=== PATIENT | female | born 1950 | race Caucasian/White ===

== ENCOUNTER 2018-01-14 07:37 | Day surgery (SDC) | payer MEDICARE, BC, OTHER ==
[~2018-01-14 07:37] MED LIST: Buffered Lidocaine 0.9% SYRIN* 5 ML/SYR SYRINGE INTRADERM ONE
[2018-01-14] MEDS ORDERED: fentaNYL* 50 MCG/ML 2 ML VIAL (100 MCG VIAL) ONE (09:05)
[2018-01-14] MEDS ORDERED: Midazolam* 1 MG/ML 2 ML VIAL (2 MG) ONE ×3 (09:10→09:43)
[2018-01-14] MEDS ORDERED: Lidocain 1% EPI 1:100,000 * 30 ML MDV ONE (09:14)
[2018-01-14] MEDS ORDERED: BSS OPTH.SOL* BTL ONE (09:14)
[2018-01-14] MEDS ORDERED: Phenylephrine 2.5% OPTH.SOL* 2 ML BTL ONE (09:14)
[2018-01-14] MEDS ORDERED: Neomycin/Polymy/Dex OPHTH.OIN* 3.5 GM ONE (09:15)
[2018-01-14] MEDS ORDERED: Tetracaine 0.5% OPTH.SOL 4 ML* 1 DROP BTL ONE (09:15)
[2018-01-14] MEDS ORDERED: Bacitracin OPHTH.OINT* 3.5 GM ONE (09:16)
[2018-01-14] MEDS ORDERED: Naloxone* 0.4 MG/ML 1 ML VIAL IV PRN (10:25)
[2018-01-14 10:28] VITALS: BP 138/74
--- NOTE | 2018-01-15 06:51 | OP ---
DATE OF OPERATION: 01/14/18 [facility] DATE OF : 54. SURGEON: Dr. Nacho Davis. INFORMATION OPERATOR: None. ANESTHESIA: Local MAC. PRE-OP DIAGNOSES: Bilateral upper lid blepharochalasia and dermatochalasia. POST-OP DIAGNOSES: Bilateral upper lid blepharochalasia and dermatochalasia. OPERATIVE PROCEDURE: Bilateral upper lid blepharoplasty. COMPLICATIONS: None. BLOOD LOSS: Minimal. DESCRIPTION OF PROCEDURE: The patient was seen preoperatively in the holding area where careful attention was made to create incisional fenton using a marking pen on the upper eye lid. The patient was subsequently brought to the operating room and given a small amount of intravenous sedation. During this time, she received approximately 1 to 1.5 cc of 1% lidocaine with epinephrine subcutaneously into each upper eyelid. The patient was then prepped and draped in the usual sterile fashion for ophthalmic surgery. Attention was directed to the right upper eyelid. A cutting bipolar was used to incise along the previously made fenton. The muscle skin flap was elevated and gentle cauterization was performed to achieve complete hemostasis. There was minimal fat protrusion, so the septum was purposely not violated. The skin was then closed with interrupted 6-0 gut suture. Attention directed to the contralateral eye where the same procedure was performed. At the end of the case , the eyelids appeared to open and close well. There was good symmetry. There was no active bleeding. A small amount of bacitracin ointment was placed above each eyelid on the wound. The patient was and sent to recovery room in stable condition with postop instructions and followup appointment given. [id number]/[facility] #: [id number] [place]
== END 2018-01-14 11:40 | disposition home or self-care (01) ==
LOC: OREAST 07:37
PROVIDERS: ATTEND Ophthalmology
DX: H02.831 Dermatochalasis of right upper eyelid (principal); H02.834 Dermatochalasis of left upper eyelid; H02.34 Blepharochalasis left upper eyelid; H02.31 Blepharochalasis right upper eyelid; H02.403 Unspecified ptosis of bilateral eyelids; F41.9 Anxiety disorder, unspecified; G47.9 Sleep disorder, unspecified; Z87.891 Personal history of nicotine dependence; Z79.01 Long term (current) use of anticoagulants; Z88.0 Allergy status to penicillin; Z88.1 Allergy status to other antibiotic agents
CPT/HCPCS: 88300; A9270-GY; J2250; J3010

== ENCOUNTER 2018-05-16 15:50 | Emergency (ER) | payer MEDICARE, OTHER, BC ==
--- OUTSIDE RECORDS SUMMARY | 2018-05-16 15:56 | XMS REPORT ---
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 Alexis Barr MD Primary Care Physician Unavailable Payers Type Date Identification Numbers Payment Provider Subscriber Commercial Expires: Policy Number: Crissy Horton 2014 [id number] PayID: [id number] [address] [address] [place] [address] Medigap Part B Effective: 2017 Policy Number: Medicare Negrito Borjas [id number] Radha PayID: [id number] [address] [place] [address] Medigap Part B Policy Number: [id number] [facility] Fabio Clifford PayID: [id number] [address] [place] [address] Problems Date Description Provider Status Onset: 06/23/2010 Anxiety state Alexis Barr M.D.,FACP Active Onset: 12/17/2012 Microscopic hematuria Alexis Barr M.D.,FACP Active Onset: 05/04/2016 Pulmonary emphysema Alexis Barr M.D.,FACP Active Note: on CT Onset: 02/22/2017 Ex-smoker Alexis Barr M.D.,FACP Active Onset: 06/05/2017 Osteopenia Alexis Barr M.D.,FACP Active Onset: 05/08/2018 Sleep apnea Alexis Barr M.D.,FACP Active Note: suspect Onset: 08/15/2012 Depressive disorder Alexis Barr M.D.,FACP Inactive Inactive: 02/17/2015 Onset: 11/13/2012 Ex-smoker Alexis Barr M.D.,FACP Inactive Inactive: 04/23/2016 Onset: 04/23/2016 Heavy cigarette smoker Alexis Barr M.D.,FACP Inactive Inactive: 02/22/2017 Onset: 06/23/2010 Tobacco user Alexis Barr M.D.,FACP Resolved Resolved: 11/13/2012 Family History Date Family Member(s) Problem(s) Comments General Non Hodgkin's Lymphoma General Non Hodgkin's Lymphoma father General Alzheimer's Disease mother Father due to [place] lymphoma () Mother Arthritis, Osteo Mother due to Alzheimer's Disease () Mother Spinal Stenosis Mother dementia First Son Tourettes sydrome First Son Mental Illness NOS First Son Drug Addiction Second Son tourette's syndrome Siblings 1 First Brother Depression Social History Type Date Description Comments Marital Status Occupation Retired from [employer] Cigarette Use 66 Years Former Cigarette Smoker ETOH Use 11/07/2017 Consumes 2 glasses of wine per day Recreational Drug Use Denies Drug Use Smoking Patient is a former smoker Smoking Patient is a former smoker Quit date: 05/10/16 Currently Active Patient is currently sexually active General Hx Text 1 child, 2 stepchildren Allergies, Adverse Reactions, Alerts Date Description Reaction Status Severity Comments 03/08/2011 Amoxicillin active nausea 05/09/2016 Doxycycline active pt states it builds up in her system and makes her sick 02/22/2017 Vagifem active itching 12/23/2008 NKDA inactive Medications Medication Date Status Form Strength Qnty SIG Indications Ordering Provider Mandibular 05/15 Active Device fabricate oral G47.33 Jessica Advancement /2017 appliance Aguiar, Device /mandibular DNP, RN, advancement MULTILITH OPERATOR- device for sleep apnea with needed adjustments. Hydrocodone 05/08 Active Tablets 5-325mg 20tab 1 by mouth 2 Alexis Bitartrate/Romario s times a day as Jacques Barr taminophen needed Jeremy,FACP Clotrimazole 11/20 Active Cream 1% 30gm topical qd prn Alexis /Arianna Barr M.D.,[facility] Clobetasol 11/07 Active Cream 0.05% 30g topical qd prn 691.8 Reina Propionate to Zambrano, erythematous GANG RIDER areas Bupropion HCL 03/08 Active Tablets 150mg 180ta take one F17.200 Reina ER (SR) /2013 ER 12HR bs tablet by [place], mouth every GANG RIDER morning and 2nd at noon (bid) Lexapro 01/16 Active Tablets 10mg 90tab take 1 tablet F32.9 Reina /2012 s by mouth every Zambrano, day GANG RIDER Klonopin Active Tablets 0.5mg 30tab 1 tablet by Alexis / s mouth every Jacques Barr, liberty as needed Jeremy,[facility] teva brand [place] 3 Active 2000 mg 1x Unknown /0000 daily Trazodone HCL Active Tablets 100mg take 09/12 Unknown tablet by mouth at bedtime Acetaminophen- 01/14 Hx Tablets 300-30mg 30tab 1-2 tab by Alexis Codeine #3 s mouth 3x a day Jacques Barr, - as needed Jeremy,[facility] 03/19 Betamethasone 11/20 Hx Cream 0.05% 45gm topical qd B35.6 Alexis Dipropionate /2017 prn, mixed Jacques Barr, - 50/50 w/ Jeremy,[facility] 03/19 clotrimazole Guaifenesin-Co 11/07 Hx Solution 100-10mg/ 180ml 5-10 R05 Reina deine 5ML milliliters [place], - q4-6hrs as GANG RIDER 03/19 needed for cough Premarin 02/22 Hx Cream 0.625mg/G 30gm insert 1 Alexis M applicatorful Jacques Barr, - by way of Jeremy,[facility] 04/24 vagina times a week for 2 weeks, then 1 to 2 times a week Nicorette 04/27 Hx Gum 4mg 100un 1 chewed every its 2 hours as Jacques Barr, - needed Jeremy,[facility] 02/22 Chantix 04/23 Hx Tablets 1mg 180ta take one . bs tablet by Jacques Barr, - mouth twice a M.D.,FACP Chantix 04/23 Hx Tablets 0.5mg X 55tab as directed F17.218 Alexis Starting 11 & 1 mg s Clayton Amezquita - X 42 M.D.,FACP 04/27 Clotrimazole/B 03/08 Hx Cream 1-0.05% 15gm apply B35.6 Reina etamethasone sparingly Zambrano, Dipropionate - twice a day GANG RIDER 11/20 Aspir-81 03/03 Hx Tablets 81mg [address] every day Ordering - Provider 02/17 Bupropion HCL 03/02 Hx Tablets 100mg 60tab 1/2 tab at 305.1 s noon PO for 2 D. Leann, - wks then 1 tab M.D.,FACP 03/08 po at Omeprazole 11/23 Hx Capsules 20mg 90cap No Longer 787.99 s Taking Jacques Barr, - [facility] 04/23 Clobetasol 09/24 Hx Cream 0.05% 30g topical qd prn 691.8 Alexis Propionate to Jacques Barr, - erythematous M.DAyad,FACP 11/23 Triamcinolone 08/20 Hx Ointment 0.1% 30g qd prn 691.8 Alexis Acetonide Jacques Barr, - MAyadD.,FACP 09/24 Bupropion HCL 08/20 Hx Tablets 100mg 60tab 1/2 tab at 305.1 s noon PO for 2 D. Leann, - wks then 1 tab M.D.,FACP 11/23 po at Trazodone HCL 04/06 Hx Tablets 100mg 90tab take one-half Alexis s to one to one Jacques Barr, - tablet by Jeremy,FACP 03/19 mouth at bedtime as needed Escitalopram 12/17 Hx Solution 5mg/5ML 30d 10 ml qd, 311 Cristy Oxalate decrease as Nitesh, - advised N.P. 08/20 Bupropion HCL 12/17 Hx Tablets 150mg 90tab Take One 305.1 Alexis ER 12HR s Tablet By Jacques Barr, - Mouth Every M.D.,FACP 03/08 Lisinopril 10/30 Hx Tablets 10mg 30tab 1 po qd 585.3 Cristy /2012 s Nitesh, - N.P. 11/13 Bupropion HCL 10/30 Hx Tablets 100mg 30tab 1 po qd 305.1 Cristy /2012 s Nitesh, - N.P. 12/17 Bupropion HCL 10/16 Hx Tablets 300mg 30tab 1 tab po qam 311 Cristy XL ER 24HR s Nitesh, - N.P. 10/30 305.1 Lexapro 10/16/2012 - Hx Tablets 10mg 90tabs 1 po qd 311 Cristy 12/17/2012 Nitesh, N.P. Wellbutrin SR 08/15/2012 - Hx Tablets ER 100mg 60tabs 1 [facility] Jacques Barr M.D.,[facility] Bactrim DS 04/18/2012 - Hx Tablets 800-160 10tabs 1 po bid Alexis 08/15/2012 mg for 5 days Jacques [facility] M.D.,[facility] Trazodone HCL 03/20/2012 - Hx Tablets 100mg 30tabs 1/2-1 po Alexis 08/15/2012 qhs prn Jacques Barr M.D.,FACP Lexapro 01/09/2012 - Hx Tablets 10mg 135tabs 1.5 tabs po Alexis 10/16/2012 qd Jacques [facility] M.D.,[facility] Alprazolam 10/12/2011 - Hx Tablets 0.5mg 30tabs 1 po qhs 780.5 Carlos Morse 08/15/2012 prn 2 Jacques [facility] M.D.,[facility] Patanol 10/12/2011 - Hx Solution 0.1% 1Bottle 1 gtts ou 372.1 Alexis 10/16/2012 bid prn 4 Jacques [facility] M.D.,[facility] Pennsaid 10/12/2011 - Hx Solution 1.5% 15ml 5-10 ggts l 726.3 Alexis 08/15/2012 elbow bid 2 Jacques Barr, milvia Luna,ALONSO Ondansetron Odt 03/20/2011 - Hx Tablets 4mg 20tabs po tid prn Carlos Morse 03/22/2011 Dispers Jacques Barr M.D.,[facility]ASP Metronidazole 03/20/2011 - Hx Tablets 250mg 30tabs tid for 10 Carlo Lito 04/05/2011 days Jacques Barr M.D.,YAS Bactrim DS 03/08/2011 - Hx Tablets 800-160 10tabs 1 po bid Alexis 03/14/2011 mg for 5 days Jacques Barr M.D.,YAS Amoxicillin 03/06/2011 - Hx Capsules 500mg 15caps 1 po tid [place] 03/08/2011 Jeremy Tinajero Ciprofloxacin 01/26/2011 - Hx Tablets 250mg 10tabs 1 bid x 5 Alexis HCL 02/02/2011 days Jacques Barr M.D.,YAS Chantix 06/23/2010 - Hx Tablets 0.5mg X 1mon starter 305.1 Alexis 03/06/2011 11 & 1 pack as Jacques Barr, mg X directed Jeremy,[facility] Lexapro - Hx Tablets 20mg 90tabs 1 tablet po Alexis 10/12/2011 qd Jacques Barr M.D.,YAS Restasis - Hx Emulsion 0.05% 1Mon one gtts ou Unknown 03/22/2011 bid Vitamin D - Hx Capsules 1000Uni 1 po qd Unknown 08/20/2013 t Lexapro - Hx Tablets 10mg 30tabs 1 po qd Unknown 01/09/2012 Vagifem - Hx Tablets 10mcg 24tabs pv twice a Unknown 02/22/2017 week (with applicator) Calcium Citrate - Hx Tablets 2 po qd Unknown + D 08/20/2013 Magnesium - Hx Capsules 200mg 1-2 po qd Unknown 02/17/2015 B Complex - Hx Capsules 30caps 2 po qd Unknown 08/20/2013 [place] 3 - Hx Capsules 90caps 2 po qd Unknown 08/20/2013 Probiotic - Hx Capsules 14caps 1 po qd Unknown 02/17/2015 Trazodone HCL - Hx .25mg As needed Unknown 05/08/2018 for sleep Immunizations CPT Code Status Date Vaccine Lot # 32617 Given 09/09/2009 Tetanus And Diptheria (Td) For Adult Use Preservative Free 20672 Refused 08/20/2013 Flu Vaccine Split Virus Preservative Free For Indiv 3Yr Older 74494 Refused 08/15/2012 Zoster (Zostavax) 93599 Refused 08/15/2012 Pneumonia Vaccine 30061 Refused 10/12/2011 Influenza Virus 3Yrs & Over 81630 Refused 06/23/2010 Pneumonia Vaccine 52215 Refused 06/23/2010 Influenza Virus 3Yrs & Over Vital Signs Date Vital Result Comment 05/15/2018 Height 64.24 inches 5'4.24" Weight 130.25 lb Heart Rate 80 /min BP Systolic Sitting 136 mmHg Rue reg cuff BP Diastolic Sitting 92 mmHg Rue reg cuff Respiratory Rate 16 /min O2 % BldC Oximetry 98 % On Ra BMI (Body Mass Index) 22.2 kg/m2 05/08/2018 Height 64.24 inches 5'4.24" Weight 131.00 lb Heart Rate 96 /min BP Systolic Sitting 120 mmHg BP Diastolic Sitting 78 mmHg Body Temperature 97.7 F O2 % BldC Oximetry 98 % BMI (Body Mass Index) 22.3 kg/m2 04/27/2018 Height 65 inches 5'5" Weight 131.00 lb with shoe Heart Rate 70 /min BP Systolic Sitting 140 mmHg Rue regular cuff BP Diastolic Sitting 82 mmHg Rue regular cuff Respiratory Rate 12 /min O2 % BldC Oximetry 98 % BMI (Body Mass Index) 21.8 kg/m2 Neck Circumference in inches 12.50 03/19/2018 Height 65 inches 5'5" Weight 129.00 lb Heart Rate 78 /min BP Systolic Sitting 160 mmHg BP Diastolic Sitting 82 mmHg Body Temperature 98.3 F O2 % BldC Oximetry 99 % BMI (Body Mass Index) 21.5 kg/m2 01/03/2018 Height 65 inches 5'5" Weight 129.38 lb Heart Rate 79 /min BP Systolic Sitting 118 mmHg BP Diastolic Sitting 78 mmHg Body Temperature 97.6 F O2 % BldC Oximetry 98 % BMI (Body Mass Index) 21.5 kg/m2 11/13/2017 Weight 130.00 lb Heart Rate 73 /min BP Systolic 118 mmHg BP Diastolic 65 mmHg Body Temperature 98.1 F O2 % BldC Oximetry 99 % 11/07/2017 Weight 130.00 lb Heart Rate 75 /min BP Systolic 130 mmHg BP Diastolic 79 mmHg Body Temperature 98.2 F O2 % BldC Oximetry 98 % 04/24/2017 Height 65 inches 5'5" Weight 130.50 lb Heart Rate 67 /min BP Systolic Sitting 122 mmHg BP Diastolic Sitting 68 mmHg Body Temperature 97.6 F O2 % BldC Oximetry 98 % BMI (Body Mass Index) 21.7 kg/m2 02/22/2017 Weight 130.00 lb Heart Rate 64 /min BP Systolic Sitting 126 mmHg BP Diastolic Sitting 86 mmHg Body Temperature 96.5 F O2 % BldC Oximetry 98 % 05/09/2016 Weight 118.38 lb Heart Rate 74 /min BP Systolic Sitting 135 mmHg BP Diastolic Sitting 84 mmHg Body Temperature 97.4 F O2 % BldC Oximetry 98 % 04/23/2016 Height 64 inches 5'4" Weight 117.00 lb Heart Rate 61 /min BP Systolic 110 mmHg BP Diastolic 66 mmHg Body Temperature 96.5 F O2 % BldC Oximetry 94 % BMI (Body Mass Index) 20.1 kg/m2 02/17/2015 Weight 122.12 lb Heart Rate 74 /min BP Systolic Sitting 124 mmHg BP Diastolic Sitting 86 mmHg Body Temperature 98.1 F O2 % BldC Oximetry 98 % 03/08/2014 Height 64.5 inches 5'4.50" Weight 122.75 lb Heart Rate 68 /min BP Systolic Sitting 138 mmHg BP Diastolic Sitting 82 mmHg Body Temperature 98.7 F BMI (Body Mass Index) 20.7 kg/m2 11/23/2013 Weight 124.00 lb Heart Rate 88 /min BP Systolic Sitting 110 mmHg BP Diastolic Sitting 64 mmHg Body Temperature 98.6 F O2 % BldC Oximetry 96 % 08/20/2013 Height 64.5 inches 5'4.50" Weight 127.75 lb Heart Rate 64 /min BP Systolic Sitting 136 mmHg BP Diastolic Sitting 90 mmHg BMI (Body Mass Index) 21.6 kg/m2 01/19/2013 Height 64.5 inches 5'4.50" Weight 136.75 lb Heart Rate 62 /min BP Systolic Sitting 132 mmHg BP Diastolic Sitting 80 mmHg BMI (Body Mass Index) 23.1 kg/m2 01/16/2013 Height 64.5 inches 5'4.50" Weight 135.00 lb Heart Rate 88 /min BP Systolic Sitting 144 mmHg BP Diastolic Sitting 80 mmHg Body Temperature 98.4 F BMI (Body Mass Index) 22.8 kg/m2 12/17/2012 Height 64.5 inches 5'4.50" Weight 138.75 lb Heart Rate 74 /min BP Systolic Sitting 122 mmHg BP Diastolic Sitting 72 mmHg BMI (Body Mass Index) 23.4 kg/m2 10/30/2012 Height 64.5 inches 5'4.50" Weight 140.50 lb Heart Rate 70 /min BP Systolic Sitting 132 mmHg BP Diastolic Sitting 88 mmHg BMI (Body Mass Index) 23.7 kg/m2 10/16/2012 Height 64.5 inches 5'4.50" Weight 141.00 lb Heart Rate 76 /min BP Systolic Sitting 110 mmHg BP Diastolic Sitting 70 mmHg Body Temperature 97.2 F BMI (Body Mass Index) 23.8 kg/m2 08/15/2012 Height 64.5 inches 5'4.50" Weight 139.00 lb Heart Rate 72 /min BP Systolic Sitting 92 mmHg BP Diastolic Sitting 70 mmHg BMI (Body Mass Index) 23.5 kg/m2 10/12/2011 Height 64.5 inches 5'4.50" Weight 128.50 lb Heart Rate 72 /min BP Systolic Sitting 112 mmHg BP Diastolic Sitting 62 mmHg BMI (Body Mass Index) 21.7 kg/m2 04/05/2011 Weight 131.00 lb Heart Rate 74 /min BP Systolic Sitting 140 mmHg BP Diastolic Sitting 80 mmHg 03/22/2011 Weight 127.00 lb Heart Rate 68 /min BP Systolic Sitting 122 mmHg BP Diastolic Sitting 78 mmHg 03/14/2011 Weight 133.00 lb Heart Rate 72 /min BP Systolic Sitting 152 mmHg BP Diastolic Sitting 92 mmHg Body Temperature 98.0 F Tympanically 03/06/2011 Body Temperature 97.6 F 01/26/2011 Body Temperature 97.3 F 06/23/2010 Height 63.5 inches 5'3.50" Weight 144.00 lb Heart Rate 78 /min BP Systolic Sitting 122 mmHg BP Diastolic Sitting 78 mmHg BMI (Body Mass Index) 25.1 kg/m2 12/23/2008 Height 63.5 inches 5'3.50" Weight 140.00 lb Heart Rate 70 /min BP Systolic Sitting 124 mmHg BP Diastolic Sitting 82 mmHg BMI (Body Mass Index) 24.4 kg/m2 Results Test Date Test Result H/L Range Note Laboratory test 01/14/2018 Surgical Interface SEE RESULT BELOW 1, 2 finding Order Basic Metabolic Panel 04/18/2017 Sodium 138 mmol/L 133-145 Potassium 4.6 mmol/L 3.5-5.0 Chloride 103 mmol/L 101-111 Co2 Carbon Dioxide 31 mmol/L 22-32 Anion Gap 4 mmol/L 2-11 Glucose 84 mg/dL 70-100 Blood Urea Nitrogen 21 mg/dL 6-24 Creatinine 0.97 mg/dL High 0.51-0.95 BUN/Creatinine Ratio 21.6 High 8-20 Calcium 9.4 mg/dL 8.6-10.3 Egfr Non- 57.8 >60 Egfr 74.4 >60 3 Urinalysis Profile 04/18/2017 Urine Color Yellow Urine Appearance Clear Urine Specific [place] 1.014 1.010-1.030 Urine pH 7.0 5-9 Urine Urobilinogen Negative Negative Urine Ketones Negative Negative Urine Protein Negative Negative Urine Leukocytes Negative Negative Urine Blood Negative Negative Urine Nitrite Negative Negative Urine Bilirubin Negative Negative Urine Glucose Negative Negative CBC Auto Diff 04/18/2017 White Blood Count 6.1 10^3/uL 3.5-10.8 Red Blood Count 3.94 10^6/uL Low 4.0-5.4 Hemoglobin 13.0 g/dL 12.0-16.0 Hematocrit 38 % 35-47 Mean Corpuscular Volume 98 fL High 80-97 Mean Corpuscular Hemoglobin 33 pg High 27-31 Mean Corpuscular HGB Conc 34 g/dL 31-36 Red Cell Distribution Width 14 % 10.5-15 Platelet Count 249 10^3/uL 150-450 Mean Platelet Volume 8 um3 7.4-10.4 Abs Neutrophils 4.0 10^3/uL 1.5-7.7 Abs Lymphocytes 1.3 10^3/uL 1.0-4.8 Abs Monocytes 0.5 10^3/uL 0-0.8 Abs Eosinophils 0.2 10^3/uL 0-0.6 Abs Basophils 0.1 10^3/uL 0-0.2 Abs Nucleated RBC 0.01 10^3/uL Granulocyte % 65.9 % 38-83 Lymphocyte % 20.9 % Low 25-47 Monocyte % 8.4 % 1-9 Eosinophil % 3.3 % 0-6 Basophil % 1.5 % 0-2 Nucleated Red Blood Cells % 0.1 Laboratory test finding 02/17/2015 Cytology Non-Computer Analyst ` Laboratory test finding 03/01/2014 Inr 0.91 0.85-1.06 Activated Partial Thrombo Time 26.6 seconds 24.0-36.1 CBC Auto Diff 03/01/2014 White Blood Count 7.8 10^3/uL 4.8-10.8 Red Blood Count 4.06 10^6/uL 4.0-5.4 Hemoglobin 13.2 g/dL 12.0-16.0 Hematocrit 39 % 35-47 Mean Corpuscular Volume 95 fL 80-97 Mean Corpuscular Hemoglobin 33 pg High 27-31 Mean Corpuscular HGB Conc 34 g/dL 31-36 Red Cell Distribution Width 13 % 10.5-15 Platelet Count 314 10^3/uL 150-450 Mean Platelet Volume 7 um3 Low 7.4-10.4 Abs Neutrophils 5.0 10^3/uL 1.5-7.7 Abs Lymphocytes 1.9 10^3/uL 1.0-4.8 Abs Monocytes 0.6 10^3/uL 0-0.8 Abs Eosinophils 0.1 10^3/uL 0-0.6 Abs Basophils 0.1 10^3/uL 0-0.2 Abs Nucleated RBC 0 10^3/uL Granulocyte % 64.5 % 38-83 Lymphocyte % 24.7 % Low 25-47 Monocyte % 7.8 % 1-9 Eosinophil % 1.9 % 0-6 Basophil % 1.1 % 0-2 Nucleated Red Blood Cells % 0 Comp Metabolic Panel 03/01/2014 Sodium 135 mmol/L 133-145 Potassium 3.7 mmol/L 3.7-5.6 Chloride 102 mmol/L 101-111 Co2 Carbon Dioxide 27 mmol/L 22-32 Anion Gap 6 mmol/L 2-11 Glucose 92 mg/dL 70-100 Blood Urea Nitrogen 18 mg/dL 6-24 Creatinine 0.79 mg/dL 0.51-0.95 BUN/Creatinine Ratio 22.8 High 8-20 Calcium 9.3 mg/dL 8.6-10.3 Total Protein 6.6 g/dL 6.4-8.9 Albumin 4.2 g/dL 3.2-5.2 Globulin 2.4 g/dL 2-4 Albumin/Globulin Ratio 1.8 1-3 Total Bilirubin 0.40 mg/dL 0.2-1.0 Alkaline Phosphatase 49 U/L 34-104 Alt 13 U/L 7-52 Ast 19 U/L 13-39 Egfr Non- 74.0 >60 Egfr 95.2 >60 4 Laboratory test finding 03/01/2014 Troponin I 0.00 ng/mL <0.03 5 Lactic Acid 0.7 mmol/L 0.5-2.2 Alcohol < 10 mg/dL <10 TSH (Thyroid Stimulating Horm) 2.61 IU/mL 0.34-5.60 Type & Screen 03/01/2014 Patient Blood Type B Positive Antibody Screen NEGATIVE Laboratory test finding 03/01/2014 Creatine Kinase 66 U/L 10-223 Stool For Blood 11/30/2013 Miscellaneous Lab Negative X 3 Cytology 10/08/2013 Cy RUN DATE: 10/09/ <SEE 6 NOTE> Lipid Profile 11/12/2012 Triglycerides 61 mg/dL 40-200 (Trig/Chol/HDL) Cholesterol 217 mg/dL High Less than 200 HDL Cholesterol 91 mg/dL High 40-60 7 Cholesterol/HDL Ratio 2.4 Average 1-4.44 LDL Cholesterol 113.8 mg/dL High Less Than 100 8 CBC With Manual Diff 10/29/2012 White Blood Count 6.5 10^3/uL 4.8-10.8 Red Blood Count 4.04 10^6/uL 4.0-5.4 Hemoglobin 13.6 g/dL 12.0-16.0 Hematocrit 40 % 35-47 Mean Corpuscular Volume 99 fL High 80-97 Mean Corpuscular Hemoglobin 34 pg High 27-31 Mean Corpuscular HGB Conc 34 g/dL 31-36 Red Cell Distribution Width 13 % 10.5-15 Platelet Count 253 10^3/uL 150-450 Mean Platelet Volume 9 um3 7.4-10.4 Abs Neutrophils 4.2 10^3/uL 1.5-7.7 Abs Lymphocytes 1.8 10^3/uL 1.0-4.8 Abs Monocytes 0.4 10^3/uL 0-0.8 Abs Eosinophils 0.1 10^3/uL 0-0.6 Abs Basophils 0 10^3/uL 0-0.2 Neutrophil % 50 % 38-83 Lymphocytes % 40 % 25-47 Monocytes % 4 % 0-13 Eosinophils % 2 % 0-6 Basophil % 2 % 0-2 Reactive Lymph % 2 % 0-6 RBC Morphology Normal Normal Basic Metabolic Panel 10/29/2012 Sodium 138 mmol/L 133-145 Potassium 4.3 mmol/L 3.5-5.0 Chloride 102 mmol/L 101-111 Co2 Carbon Dioxide 30.0 mmol/L 22-32 Anion Gap 6.0 mmol/L 2-11 Glucose 110 mg/dL High 70-100 Blood Urea Nitrogen 18 mg/dL 6-24 Creatinine 1.10 mg/dL 0.50-1.40 BUN/Creatinine Ratio 16.4 8-20 Calcium 9.4 mg/dL 8.1-9.9 Egfr Non- 50.7 >60 Egfr 65.2 >60 9 Ua Routine 10/16/2012 Ua Specific [place] 1.005 Ua PH 6.0 Ua Color yellow Ua Appera clear Ua WBC 0 Ua Protein 0 Ua Glucose 0 Ua Ketones 0 Ua Bilirubin 0 Ua Urobilinogen 0 Ua Nitrite 0 Ua Occult Blood large Vitamin D, 25 Hydroxy 10/06/2012 25-Hydroxy Vitamin D2 <4.0 ng/mL 25-Hydroxy Vitamin D3 51 ng/mL 25-Hydroxy Vitamin D Total 51 ng/mL 10 Laboratory test finding 07/03/2011 C. Difficile Toxin A TNP 11, 12 B Giardia Lamblia Antigen 07/03/2011 Giardia Antigen Giardia antigen 11, 13 Screen <SEE NOTE> Giardia Antigen Screen NEGATIVE BY IMMU <SEE NOTE> 11, 14 Stool For Blood 03/20/2011 Stool For Blood NEGATIVE Negative 15 Stool Color GUERRERO 15 Stool Form NONFORMED 15 Stool Consistency MUCOID LIQUID 15 C. Difficile Toxin A 03/20/2011 C. Difficile Toxin A TEST LIMITATIONS <SEE 15, 16 B B NOTE> C. Difficile Toxin A B NEGATIVE BY IMMU <SEE NOTE> 15, 17 Giardia Lamblia 03/20/2011 Giardia Antigen Giardia antigen <SEE 15, 18 Antigen Screen NOTE> Giardia Antigen Screen POSITIVE BY IMMU <SEE NOTE> 15, 19 Stool WBC Fecal 03/20/2011 Fecal Lactoferrin NEGATIVE BY IMMU 15, 20 Lactoferrin (Stool WBC) <SEE NOTE> Stool Specimen Description GUERRERO 15, 21 Fecal Lactoferrin 03/20/2011 Fecal Lactoferrin TEST LIMITATIONS <SEE 15 , 22 (Stool WBC) (Stool WBC) NOTE> Fecal Lactoferrin (Stool WBC) NEGATIVE BY IMMU <SEE NOTE> 15, 23 Urine Culture & Sensitivi 03/14/2011 Urine Culture NG 24 Sensitivi Laboratory test finding 03/14/2011 Cytology 25 <SEE NOTE> GC (N. Gonorrhoeae) Rna N 26 GC/Chlamydia Aptima 03/14/2011 Chlamydia Trachomatis Rna N 27 CBC Auto Diff 03/14/2011 White Blood Count 8.0 CUMM 4.8-10.8 Red Cell Count 4.62 CUMM 4.2-5.4 Hemoglobin 15.0 g/dL 12.0-16.0 Hematocrit 45 % 35-47 Mean Corpuscular Volume 97 um3 79-97 Mean Corpuscular Hemoglob 33 pg High 27-31 Mean Corpuscular HGB Cone 33 g/dL 32-36 Redcell Distribution WDTH 13 % 10.5-15 Platelet Count 360 CUMM 150-450 Mean Platelet Volume 8.8 um3 7.4-10.4 Gran % 63.1 % 38-83 Lymph % 25.9 % 25-47 Mononuclear % 9.4 % High 1-9 Eosinophil % 1.3 % 0-6 Basophil % 0.3 % 0-2 Abs Lymphs 2.1 1.0-4.8 Abs Mononuclear 0.8 0-0.8 Absolute Neutrophil Count 5.1 1.5-7.7 Abs Eosinophils 0.1 0-0.6 Abs Basophils 0 0-0.2 Laboratory test finding 03/14/2011 TSH 1.18 MIU/ML 0.34-5.60 CA 125 (Ovarian Cancer Ag) 17.3 U/ML 2.0-35.0 28 Comp Metabolic Panel 03/14/2011 Sodium 134 mmol/L Low 135-145 Potassium 4.6 mmol/L 3.5-5.0 Chloride 98 mmol/L Low 101-111 Co2 (Carbon Dioxide) 23.0 mmol/L 22-32 Anion Gap 13.0 mmol/L High 2-11 29 Glucose 80 mg/dL 70-100 BUN 15 mg/dL 6-24 Creatinine 1.00 mg/dL 0.50-1.40 One Over Creatinine 1.00 BUN/Creatinine Ratio 15.0 8-20 Calcium 9.5 mg/dL 8.1-9.9 Total Protein 6.8 GM/DL 6.2-8.1 Albumin 4.5 GM/DL 3.6-5.4 Globulin 2.3 GM/DL 2-4 Albumin/Globulin Ratio 2.0 1-3 Bilirubin Total 0.6 mg/dL 0.4-1.5 30 Alkaline Phosphatase 60 U/L 30-110 Alt (SGPT) 17 U/L 14-54 Ast (Sgot) 26 U/L 12-42 eGFR Non- 56.9 > 60 eGFR 73.2 > 60 31 Urine Culture & Sensitivi 03/06/2011 Urine Culture Sensitivi SN1 32 Urinalysis W/Microscopic 03/06/2011 Ua Color YELLOW Yellow Appearance-Urine CLEAR Clear Specific [place]-Ur 1.020 1.010-1.030 Esterase-Urine 1+ Negative Nitrite NEGATIVE Negative [id number] NEGATIVE Negative Protein-Urine NEGATIVE Negative PH-Urine 7.0 5-9 Blood-Urine 2+ Negative Ketones-Urine NEGATIVE Negative Bilirubin-Ur NEGATIVE Negative Glucose-Urine NEGATIVE Negative WBC-Urine 1-3 0-5 RBC-Urine 1-3 0-2 Epith Cells-Ur FEW None Bacteria-Urine 1+ None Amorphous Sed-U 2+ None Urine Culture & 01/26/2011 Urine Culture ESCHERICHIA COLI 33 Sensitivi Sensitivi Urinalysis 01/26/2011 Ua Color YELLOW Yellow W/Microscopic Appearance-Urine CLEAR Clear Specific [place]-Ur 1.010 1.010-1.030 Esterase-Urine 2+ Negative Nitrite NEGATIVE Negative [id number] NEGATIVE Negative Protein-Urine NEGATIVE Negative PH-Urine 6.0 5-9 Blood-Urine 2+ Negative Ketones-Urine NEGATIVE Negative Bilirubin-Ur NEGATIVE Negative Glucose-Urine NEGATIVE Negative WBC-Urine TNTC 0-5 RBC-Urine 2-6 0-2 Epith Cells-Ur SMALL None Bacteria-Urine 1+ None Sensitivities For Urine Culture 01/26/2011 Ampicillin <=2 Amikacin <=2 Ciprofloxacin <=0.25 Ceftriaxone <=1 Cefazolin <=4 Nitrofurantoin <=16 Gentamicin <=1 Imipenem <=1 Levofloxacin <=0.12 Trimeth-Sulfa <=20 Ceftazidime <=1 Tigecycline <=0.5 Piperacillin/Tazobactam KB 29 Vitamin D, 25 Hydroxy 07/18/2010 25-Hydroxy Vitamin D2 <4.0 ng/mL () 25-Hydroxy Vitamin D3 28 ng/mL () 25-Hydroxy Vitamin D Total 28 ng/mL () 34 Basic Metabolic Panel 07/18/2010 Sodium 139 mmol/L 135-145 Potassium 4.4 mmol/L 3.5-5.0 Chloride 104 mmol/L 101-111 Co2 (Carbon Dioxide) 27.0 mmol/L 22-32 Anion Gap 8.0 mmol/L 2-11 35 Glucose 98 mg/dL 70-100 36 BUN 19 mg/dL 6-24 Creatinine 0.80 mg/dL 0.50-1.40 One Over Creatinine 1.20 BUN/Creatinine Ratio 23.8 High 8-20 Calcium 9.5 mg/dL 8.1-9.9 eGFR Non- 78.3 > 60 eGFR 94.7 > 60 37 Lipid Profile (Trig/Chol/HDL) 07/18/2010 Triglyceride 64 mg/dL 40-200 Cholesterol 214 mg/dL High Less Than 200 38 High Density Lipoprotein 94 mg/dL High 40-60 39 Cholesterol/HDL Ratio 2.28 AVERAGE 1-4.44 Low Density Lipoprotein 107 mg/dL High Less Than 100 40 1 [id number] SEE RESULT BELOW Name: NEGRITO GARCIA : [address]: Nacho Davis MD Acct: [id number] Unit: [id number] AGE: 67 Location: [facility] Re01/14/18 SEX: F [place] [facility] [facility] [place]C: [id number] ANNAMARIE: 01/14/18-[address]: Nacho Davis MD REQ: [id number] RECD: 01/14/18 STATUS: VERONICA MALAVE DR: Alexis Barr MD _ ORDERED: LEVEL 1 COMMENTS: [id number] FINAL DIAGNOSIS Skin, bilateral upper eyelids, excision: Unremarkable skin as described above (Gross diagnosis). PRE-OPERATIVE DIAGNOSIS Bilateral dermatochalasis GROSS DESCRIPTION The specimen is received in formalin labeled, Bilateral Upper Eyelid Skin, and consists of two guerrero-pink wrinkled elliptical skin fragments measuring 2.8 x 1.3 x 0.4 cm and 3.1 x 1.2 x 0.4 cm. Per established hospital medical staff protocol, no tissue is submitted. Gross only. Signed by and Reported on: Delmy Hansen MD 01/15/18 1114 END OF REPORT DEPARTMENT OF PATHOLOGY, [address] [place] [address] Rajeev Covington M.D. Director [facility] # [id number] 3 Because ethnic data is not always readily available, this report includes an eGFR for both -Americans and non- Americans. The National Kidney Disease Education Program (NKDEP) does not endorse the use of the MDRD equation for patients that are not between the ages of 18 and 70, are , have extremes of body size, muscle mass, or nutritional status, or are non- or non-. According to the National Kidney Foundation, irrespective of diagnosis, the stage of the disease is based on the level of kidney function: Stage Description GFR(mL/min/1.73 m(2)) 1 Kidney damage with normal or decreased GFR 90 2 Kidney damage with mild decrease in GFR 60-89 3 Moderate decrease in GFR 30-59 4 Severe decrease in GFR 15-29 5 Kidney failure <15 (or dialysis) 4 Because ethnic data is not always readily available, this report includes an eGFR for both -Americans and non- Americans. The National Kidney Disease Education Program (NKDEP) does not endorse the use of the MDRD equation for patients that are not between the ages of 18 and 70, are , have extremes of body size, muscle mass, or nutritional status, or are non- or non-. According to the National Kidney Foundation, irrespective of diagnosis, the stage of the disease is based on the level of kidney function: Stage Description GFR(mL/min/1.73 m(2)) 1 Kidney damage with normal or decreased GFR 90 2 Kidney damage with mild decrease in GFR 60-89 3 Moderate decrease in GFR 30-59 4 Severe decrease in GFR 15-29 5 Kidney failure <15 (or dialysis) 5 Reference Range and Interpretation: TnI (ng/mL) Interpretation Less Than 0.03 ng/mL Not supportive of diagnosis of PA 0.03 - 0.50 ng/mL Indeterminate: suggest serial studies if clinically indicated. Greater than 0.5 ng/mL Consistent with diagnosis of PA 6 RUN DATE: 10/09/13 [facility] LAB LIVE PAGE 1 RUN TIME: [address] [place] [address] Specimen Inquiry Name: NEGRITO GARCIA : [address]: Ju Nice NP Acct: [id number] Unit: [id number] AGE: 63 Location: [facility] Re10/08/13 SEX: F Status: REG REF SPEC: [id number] ANNAMARIE: 10/08/13-[address]: Ju Nice NP REQ: [id number] RECD: 10/08/13 STATUS: VERONICA MALAVE DR: Alexis Barr MD _ ORDERED: IMAGE ANALYSIS FINAL DIAGNOSIS Negative for Intraepithelial lesion or Malignancy A. Ectocervical/Endocervical Specimen Adequacy: Satisfactory of evaluation Transformation zone component identified Patient Information: HPV: Thin Layer Pap Test w/reflex to high risk HPV DNA testing when ASCUS Actual Specimen Date: 10/08/13 LMP If Unknown: 2001 Cautery: N IUD: N Lesion, grossly demonstrate: N Radiation Y/N? N ?: N Post Menopausal?: Y Hysterectomy?: N Previous Abnormal Pap Smears?:N Signed (signature on file) Reina Argueta [place] (ASCP) 10/09/13 1434 This Pap test was evaluated with the assistance of the TipserPrep Test Imaging System. Due to cytologic findings at the stock roller microscope, comprehensive manual rescreening by a Wound Care Rn may be required. The Pap Smear is a screening test designed to aid in the detection of premalignant and malignant conditions of the uterine cervix. It is not a diagnostic procedure and should not be used as the sole means of detecting cervical cancer. Both false- positive and false- negative reports do occur. Depending on your risk status, a Pap smear shoudl be obtained and evaluated every 1-3 years. END OF REPORT * ML=Testing performed at Main Lab DEPARTMENT OF PATHOLOGY, [address] [place] [address] Rajeev Covington M.D. Director [facility] Permit #[id number] 7 HDL Interpretation: Undesirable: High Risk: Less than 40 MG/DL Desirable: Low Risk: Greater than 60 MG/DL 8 LDL Interpretation: Low Risk Optimal Level: LDL Less than 100 MG/DL Near or Above Optimal: LDL 100-129 MG/DL Borderline High Risk: LDL 130-159 MG/DL High Risk: LDL 160-189 MG/DL Very High Risk: LDL Greater than 189 MG/DL 9 Because ethnic data is not always readily available, this report includes an eGFR for both -Americans and non- Americans. The National Kidney Disease Education Program (NKDEP) does not endorse the use of the MDRD equation for patients that are not between the ages of 18 and 70, are , have extremes of body size, muscle mass, or nutritional status, or are non- or non-. According to the National Kidney Foundation, irrespective of diagnosis, the stage of the disease is based on the level of kidney function: Stage Description GFR(mL/min/1.73 m(2)) 1 Kidney damage with normal or decreased GFR 90 2 Kidney damage with mild decrease in GFR 60-89 3 Moderate decrease in GFR 30-59 4 Severe decrease in GFR 15-29 5 Kidney failure <15 (or dialysis) 10 -- REFERENCE VALUE -- 25-HYDROXY D TOTAL (D2+D3) Optimum levels in the normal population are 25-80 Test Performed by: [address] [address] Customer Services Supervisor: Gene Tolbert III, M.D. 11 C. DIFFICILE TOXIN TESTING IS NOT PERFORMED ON FORMED STOOL SPECIMENS. TEST OF CURE ON POSITIVE PATIENTS IS NOT RECOMMENDED. 12 Test not performed 13 Giardia antigen testing performed by immunoassay. If patient is immunocompromised or has traveled to or is from a developing country, a full ova and parasite exam with microscopic (OPMIC) is recommended. All samples will be held one month in case full ova and parasite testing is requested. Contact the Microbiology Department at [phone]. 14 NEGATIVE BY IMMUNOASSAY [address] BARR BY UJLIO AT 1427 ON 03/21/11. Results read back accurately. RESULTS SENT TO [facility] INFECTION CONTROL NURSE ON 03/21/11 AT 1428 BY JULIO. 16 TEST LIMITATIONS: The performance of specimens from pediatric patients has not been evaluated. A positive test confirms the presence of toxins A and/or B only. A physician must use the test results in conjunction with other diagnostic procedures and the patient's clinical condition to establish a diagnosis of C.difficile-associated disease. Isolates of C. sordellii may react with this test due to immunological identitiy of the C. sordellii toxins. Two distinct groups have been identified that can harbor C. difficile asymptomatically at very high rates. Colonization rates of up to 50% and higher have been reported in infants and rates of up to 32% in cystic fibrosis patients. 17 NEGATIVE BY IMMUNOASSAY 18 Giardia antigen testing performed by immunoassay. If patient is immunocompromised or has traveled to or is from a developing country, a full ova and parasite exam with microscopic (OPMIC) is recommended. All samples will be held one month in case full ova and parasite testing is requested. Contact the Microbiology Department at [phone]. 19 POSITIVE BY IMMUNOASSAY 20 NEGATIVE BY IMMUNOASSAY 21 MUCOID NONFORMED LIQUID 22 TEST LIMITATIONS: Assay detects elevated levels of lactoferrin released from fecal leukocytes as a marker of intestinal inflammation. The test may not be appropriate in immunocompromised persons. Fecal samples from breast fed infants should not be used with this assay. INTERPRET RESULTS WITH CAUTION MANY WBCS OBSERVED ON GRAM STAIN. EXCESSIVELY MUCOID SPECIMEN MAY HAVE DECREASED PERFORMANCE OF STOOL LACTOFERRIN ASSAY. VERBAL TO HI AMAYA/DR. BARR'S OFFICE BY LRU at 1520 on 03/21/11. Results read back accurately. 23 NEGATIVE BY IMMUNOASSAY 24 FINAL: NO GROWTH DAY 2 (<1,000 CFU/mL) 25 ---- RUN DATE: 03/15/11 [facility] NMI LIVE PAGE 1 RUN TIME: 1233 Specimen Inquiry RUN USER: INTERFACE -- Name: NEGRITO GARCIA Accchristophe#: [id number] Status: REG REF Re03/14/11 Age/Sex: 60/F Unit#: [id number] Location: [facility] : [birth year] -- Specimen: [id number] SOUT Spec Date: 03/14/11 [facility] Dr: Alexis Barr MD Spec Type: CYTOLOGY Received: 03/15/11 Copies to: SOURCE ECTOCERVICAL/ENDOCERVICAL Thin Prep with Reflex HPV Test PATIENT INFORMATION ACTUAL COLLECTION DATE: 03/14/11 ? No POST MENOPAUSAL? Yes HYSTERECTOMY? No PATIENT HISTORY: Last menstrual period 8 yrs ago ADEQUACY OF SPECIMEN Satisfactory for evaluation * Transformation zone component cannot be definitely identified due to prese nce * of atrophy or other hormonal changes. * DIAGNOSIS NEGATIVE FOR INTRAEPITHELIAL LESION OR MALIGNANCY * This Pap test was evaluated with the assistance of the TipserPrep Pap Test Imaging System. However, due to technical or cytologic issues, the imaging could not be completed. Comprehensive manual rescreening by a Wound Care Rn was performed. The Pap Smear is a screening test designed to aid in the detection of premalign ant and malignant conditions of the uterine cervix. It is not a diagnostic procedure a nd should not be used as the sole means of detecting cervical cancer. Both false- positiv e and false-negative reports do occur. Depending on your risk status, a Pap smear rc uld be obtained and evaluated every one to three years. Initial evaluation performed by Chi DOWNEY([facility]) 03/15/11 Final Interpretation electronically signed by: Chi DOWNEY([facility]) 03/15/11 1127 -- DEPARTMENT OF PATHOLOGY, [address] [place] [address] [facility] Permit #[id number] Jeremy Lezama M.D. Superintendent [employer] Managing Dir ady -- 26 NEGATIVE FOR NEISSERIA GONORRHOEAE rRNA A negative result does not preclude the presence of a C.trachomatis or N.gonorrhoeae infection because results are dependent on adequate specimen collection, absence of inhibitors, and sufficient rRNA to be detected. Test results may be affected by improper specimen collection, improper specimen storage, technical error, or specimen mixup. 27 NEGATIVE FOR CHLAMYDIA TRACHOMATIS rRNA A negative result does not preclude the presence of a C.trachomatis or N.gonorrhoeae infection because results are dependent on adequate specimen collection, absence of inhibitors, and sufficient rRNA to be detected. Test results may be affected by improper specimen collection, improper specimen storage, technical error, or specimen mixup. 28 The CA 125 assay is not recommended as a cancer screening test, but rather as an aid in monitoring response to therapy for patients with epithelial ovarian cancer. Serial testing for patients CA 125 assay values should be used in conjunction with other methods used for screening ovarian cancer. . 29 Anion gap measurement may be of limited value in the presence of any alkalosis, especially in a combined acid base disorder. . 30 A metabolite of Naproxen, O-desmethylnaproxen, has been shown to interfere with the Jendrassik-Mekhi method for measuring total bilirubin. Samples from patients who have taken Naproxen have shown spurious elevation in total bilirubin levels. 31 Because ethnic data is not always readily available, this report includes an eGFR for both -Americans and non- Americans. The National Kidney Disease Education Program (NKDEP) does not endorse the use of the MDRD equation for patients that are not between the ages of 18 and 70, are , have extremes of body size, muscle mass, or nutritional status, or are non- or non-. According to the National Kidney Foundation, irrespective of diagnosis, the stage of the disease is based on the level of kidney function: Stage Description GFR(mL/min/1.73 m(2)) 1 Kidney damage with normal or decreased GFR 90 2 Kidney damage with mild decrease in GFR 60-89 3 Moderate decrease in GFR 30-59 4 Severe decrease in GFR 15-29 5 Kidney failure <15 (or dialysis) 32 SCANT NORMAL URETHRAL OR PERINEAL DULCE 33 75^50-75,000 ORGANISMS/ML (MANY)^CCU 34 -- REFERENCE VALUE -- 25-HYDROXY D TOTAL (D2+D3) Optimum levels in the normal population are 25-80 Test Performed by: [facility] Lab Med and Pathology [address] [place] [address] Customer Services Supervisor: Gene Tolbert III, M.D. 35 Anion gap measurement may be of limited value in the presence of any alkalosis, especially in a combined acid base disorder. . 36 Note change in reference range as of 04/29/08. The change was based on recommendations from the [place] [employer]. 37 Because ethnic data is not always readily available, this report includes an eGFR for both -Americans and non- Americans. The National Kidney Disease Education Program (NKDEP) does not endorse the use of the MDRD equation for patients that are not between the ages of 18 and 70, are , have extremes of body size, muscle mass, or nutritional status, or are non- or non-. According to the National Kidney Foundation, irrespective of diagnosis, the stage of the disease is based on the level of kidney function: Stage Description GFR(mL/min/1.73 m(2)) 1 Kidney damage with normal or decreased GFR 90 2 Kidney damage with mild decrease in GFR 60-89 3 Moderate decrease in GFR 30-59 4 Severe decrease in GFR 15-29 5 Kidney failure <15 (or dialysis) 38 CHOLESTEROL INTERPRETATION: Desirable: Less than 200 MG/DL Borderline-High Risk: 200-239 MG/DL High-Risk: 240 MG/DL and over 39 HDL INTERPRETATION: Undesirable: High Risk: Less than 40 MG/DL Desirable: Low Risk: Greater than 60 MG/DL 40 LDL INTERPRETATION: Low Risk Optimal Level: LDL Less than 100 MG/DL Near or Above Optimal: LDL 100-129 MG/DL Borderline High Risk: LDL 130-159 MG/DL High Risk: LDL 160-189 MG/DL Very High Risk: LDL Greater than 189 MG/DL Procedures Date CPT Code Description Status Comment 10/29/2017 Diabetic Retinal Eye Exam Completed Document: 10/29/17 - Consult Ophthalmology Aurelio Cowart 05/03/2017 Bone Mineral Density Test Completed 04/24/2017 82830 EKG Tracing & Interpretation Completed 11/29/2016 Mammogram Completed 03/02/2014 99088 EEG Recording Awake & Drowsy Completed 03/02/2014 61665 ECHO Transthorasic Realtime Completed 2D W Doppler & Color Flow Hosp 09/23/2013 Colonoscopy Completed 10/23/2012 Mammogram Completed 07/18/2010 Mammogram Completed 01/11/2009 Bone Mineral Density Test Completed 01/11/2009 Mammogram Completed 08/08/50 Colonoscopy Completed Encounters Type Date Location Provider CPT E/M Dx Office Visit 04/27/2018 [place] [address] R06.83 10:00a [facility] Z87.891 Office Visit 03/19/2018 11:40a [facility] Internal Alexis Barr, 86155 G47.33 Medicine - [place] Antony Luna,FACP Office Visit 01/03/2018 1:20p [facility] Internal Estefany Smiley, MULTILITH OPERATOR [address] Z01.818 Medicine - [place] [address] H02.403 M85.9 Office Visit 11/13/2017 2:00p [facility] [place] [address] R05 Medicine - [place] [address] Office Visit 11/07/2017 8:40a [facility] [place] [address] H02.403 Medicine - [address] [address] R05 Z01.818 Office Visit 02/22/2017 9:40a [facility] Internal Alexis Barr, 21114 G47.30 Medicine - [place] Antony Luna,FACP F17.211 Office Visit 05/09/2016 11:50a [facility] Internal Medicine Alexis Barr, 13964 J43.9 - [place] Antony Luna,FACP F17.218 F41.9 Office Visit 04/23/2016 9:30a [facility] Internal Alexis Barr, 63079 Z00.00 Medicine - [place] Antony Luna,FACP F41.9 F17.218 Z12.2 Z12.31 Office Visit 02/17/2015 11:10a [facility] Internal Medicine Alexis Barr, 32617 V70.0 - [place] Antony Luna,FACP 300.00 V76.19 599.72 Office Visit 03/08/2014 1:40p [facility] Internal Medicine Alexis Barr, 34765 780.2 - Nancy Luna,FACP 753.4 110.3 Office Visit 03/01/2014 12:48p [facility] Aleida Watkins M.D. 22348 780.97 [facility] 784.3 368.9 780.8 Office Visit 03/01/2014 2:25p [facility], [place] [address] 784.3 Hospitalists 991.6 780.97 784.0 Office Visit 11/23/2013 4:40p [facility] Internal Medicine Alexis Barr, 10675 533.70 - Nancy Luna,FACP 787.99 Office Visit 08/20/2013 10:10a [facility] Internal Medicine Alexis Barr, 43634 V70.0 - Nancy Luna,FACP 305.1 311 V76.51 691.8 Office Visit 01/19/2013 11:40a [facility] Internal Medicine Cade Sapp, 04874 V58.32 - Nancy Luna Office Visit 01/16/2013 1:30p [facility] Internal Medicine Cristy Dowling, 04138 V58.32 - [place] [facility] Office Visit 12/17/2012 1:40p [facility] Internal Medicine Alexis Barr, 91561 599.72 - Nancy Luna,FACP 305.1 311 Office Visit 10/30/2012 11:30a [facility] Internal Medicine Cristy Dowling, N.P. 45736 585.3 - [place] 305.1 V77.91 V76.10 Office Visit 10/16/2012 11:00a [facility] Internal Medicine Cristy Dowling, N.P. 09422 599.0 - [place] 311 305.1 599.70 Office Visit 08/15/2012 10:00a [facility] Internal Medicine Aelxis Barr, 82528 V70.0 - Nancy Luna,FACP 311 305.1 V76.19 Office Visit 10/12/2011 1:00p [facility] Internal Medicine Alexis Barr, 84015 780.52 - Nancy Luna,FACP 372.14 726.32 Office Visit 04/05/2011 4:20p DO Not Use Senior Product Integrity Engineer AT [facility], 30102 524.60 [facility],FACP 446.5 Office Visit 03/22/2011 8:30a DO Not Use Senior Product Integrity Engineer AT [facility], 04488 007.1 [facility] Office Visit 03/14/2011 1:20p DO Not Use Senior Product Integrity Engineer AT [facility], 68390 789.04 [facility],FACP 599.0 783.21 V76.2 Office Visit 06/23/2010 3:40p DO Not Use Senior Product Integrity Engineer AT [facility], 60081 V70.0 [facility],FACP V76.10 305.1 300.00 Office Visit 12/23/2008 10:20a DO Not Use Senior Product Integrity Engineer AT [facility], 45053 V70.0 [facility],FACP 733.90 V76.10 311 Plan of Care Future Appointment(s):07/03/2018 9:30 am - Jessica Aguiar DNP, ROCIO, MULTILITH OPERATOR-BC at [facility]05/13/2019 10:20 am - Alexis Barr M.D.,FACP at [facility] Internal Medicine - [address]05/15/2018 - Jessica Aguiar DNP, RN, MULTILITH OPERATOR-BCG47.33 Obstructive sleep apnea (adult) (pediatric)New Medication: Mandibular Advancement DeviceComments:Sleep Apnea - 05/06/18 HST AHI 21.7/hour , worse supine 48.9/hour, luz oxygen 82%, (<90% 18 minutes)Follow up:6 weeksRecommendations:Sleep apnea to start PAP at 5-10 cm Sleep apnea to investigate the oral appliance/mandibular device to be used instead of CPAP, if you use this item an in-lab study would be needed to assess effectiveness of treatment. Dental list provided Review of sleep study in detail. Review of risks of untreated sleep apnea including cardiovascular events: rhythm irregularities, heart attack, stroke; gastro esophageal reflux disease (GERD); diabetes; anxiety, depression; high blood pressure; accidents (machinery and automobile) Recommendation for PAP other treatment modalities NON-PAP including oral appliance/mandibular advancement device, positional strategies , and surgery discussed. Referral for PAP device to be sent to [employer] [facility] phone: [phone] Equipment appointment will take about 45 minutes, the DME provider will call you within 5 days to set you up for the device. If you do not hear from them call the Sleep Center. The mask will have a 30-day guarantee, if you have mask problems call the DME provider to have a fitting for a differentmask. Need distilled water for humidifier CPAP mask and tubing Cleaning Wipe off mask daily (baby wipe-no scent, or warm water) Clean mask, tubing, filter, and water chamber weekly in mild no scent dish soap and water. Hang to dry. So-Clean is an option (not covered by insurance) If you have problems with the air pressure call the sleep center and speak to a nurse. If you have any sleepiness while driving you MUST avoid operating a vehicle or machinery. If you have any further questions, please call the Sleep Disorder Center at [phone]. Sleep apnea to investigate the oral appliance/mandibular device Dental list [id number] Emphysema, unspecifiedNew Orders:PFTW/Spirometry Vol Pre/Post Bronchdilat Dlco CompleteRecommendations:Asymptomatic Baseline PFTs
--- OUTSIDE RECORDS SUMMARY | 2018-05-16 15:57 | XMS REPORT ---
:1950 External Reference #:[id number] Author Organization [facility] Address [address] [place] [address] [place] [address] Phone [phone] Care Team Providers Name Role Phone Alexis Barr MD Care Team Information Professor Of Forestry Unavailable Alexis Barr MD Primary Care Physician Unavailable Payers Type Date Identification Numbers Payment Provider Subscriber Commercial Expires: Policy Number: Crissy Horton 2014 [id number] PayID: [id number] [address] [address] [place] [address] Medigap Part B Effective: 2017 Policy Number: Medicare Negrito Borjas [id number] Radha PayID: [id number] [address] [place] [address] Medigap Part B Policy Number: [id number] [facility] Fabio Clifford PayID: [id number] [address] [place] [address] Problems Date Description Provider Status Onset: 06/23/2010 [...] Description Comments Marital Status Occupation Retired from [employer] Cigarette Use 66 Years Former Cigarette Smoker [...] Form Strength Qnty SIG Indications Ordering Provider Hydrocodone 05/08 Active Tablets 5-325mg 20tab 1 by mouth 2 Alexis Bitartrate/ s times a day as Jacques Barr aminophen needed Jeremy,FACMakenna Clotrimazole 11/20 Active Cream 1% 30gm topical qd prn Jacques Barr M.D.,FACP Clobetasol 11/07 Active Cream 0.05% 30g topical qd prn 691.8 Reina Propionate to Zambrano, erythematous QUALITY ASSURANCE AUDITOR areas Bupropion HCL 03/08 Active Tablets 150mg 180ta take one F17.200 Reina ER (SR) /2013 ER 12HR bs tablet by [place], mouth every QUALITY ASSURANCE AUDITOR morning and 2nd at noon (bid) Lexapro 01/16 Active Tablets 10mg 90tab take 1 tablet F32.9 Reina /2013 s by mouth every [place], day QUALITY ASSURANCE AUDITOR Klonopin Active Tablets 0.5mg 30tab 1 tablet by Alexis / s mouth every Jacques Barr, day as needed M.DAyad,[facility] teva brand [place] 3 Active 2000 mg 1x Unknown / daily Trazodone HCL Active Tablets 100mg take 09/12 Unknown tablet by mouth at bedtime Acetaminophen-C 01/14 Hx Tablets 300-30mg 30tab 1-2 tab by Alexis butterfieldeinanthony #3 s mouth 3x a day Jacques Barr, - as needed M.Jacques,[facility] 03/19 Betamethasone 11/20 Hx Cream 0.05% 45gm topical qd B35.6 Alexis Dipropionate /2017 prn, mixed Jacques Barr, - 50/50 w/ M.DAyad,[facility] 03/19 clotrimazole /2017 Guaifenesin-Cod 11/07 Hx Solution 100-10mg/ 180ml 5-10 R05 Reina eine /2017 5ML milliliters Zambrano, - q4-6hrs as QUALITY ASSURANCE AUDITOR 03/19 needed for cough Premarin 02/22 Hx Cream 0.625mg/G 30gm insert 1 M applicatorful Jacques Barr, - by way of Jeremy,[facility] 04/24 vagina times a week for 2 weeks, then 1 to 2 times a week Nicorette 04/27 Hx Gum 4mg 100un 1 chewed every its 2 hours as Jacques Barr, - needed M.DAyad,[facility] 02/22 Chantix 04/23 Hx Tablets 1mg 180ta take one F17.218 bs tablet by Jacques Barr, - mouth twice a M.D.,[facility] Chantix 04/23 Hx Tablets 0.5mg X 55tab as directed F17.218 Alexis Starting 11 & 1 mg s Clayton Amezquita - X 42 Jeremy,[facility] 04/27 Clotrimazole/Be 03/08 Hx Cream 1-0.05% 15gm apply B35.6 Reina tamethasone sparingly Zambrano, Dipropionate - twice a day QUALITY ASSURANCE AUDITOR 11/20 Aspir-81 03/03 Hx Tablets 81mg 1 by mouth Other every day Ordering - Provider 02/17 Bupropion HCL 03/02 Hx Tablets 100mg 60tab 1/2 tab at 305.1 s noon PO for 2 D. Leann, - wks then 1 tab M.D.,FACP 03/08 po at Omeprazole 11/23 Hx Capsules 20mg 90cap No Longer 787.99 s Taking Jacques Barr, - [facility] 04/23 Clobetasol 09/24 Hx Cream 0.05% 30g topical qd prn 691.8 Alexis Propionate E to Jacques Barr, - erythematous Jeremy[facility] 11/23 areas Triamcinolone 08/20 Hx Ointment 0.1% 30g qd prn 691.8 Alexis Acetonide Jacques Barr, - [facility] 09/24 Bupropion HCL 08/20 Hx Tablets 100mg 60tab 1/2 tab at 305.1 Alexis s noon PO for 2 D. Leann, - wks then 1 tab M.D.,FACP 11/23 po at Trazodone HCL 04/06 Hx Tablets 100mg 90tab take one-half s to one to one D. Leann, - tablet by Jeremy,[facility] 03/19 mouth at bedtime as needed Escitalopram 12/17 Hx Solution 5mg/5ML 30d 10 ml qd, 311 Cristy Oxalate decrease as Nitesh, - advised N.P. 08/20 Bupropion HCL 12/17 Hx Tablets 150mg 90tab Take One 305.1 Alexis ER 12HR s Tablet By Jacques Barr, - Mouth Every MRobyn,FACP 03/08 Lisinopril 10/30 Hx Tablets 10mg 30tab 1 po qd 585.3 Cristy /2012 jennifer Dowling, - N.P. 11/13 Bupropion HCL 10/30 Hx Tablets 100mg 30tab 1 po qd 305.1 Cristy /2012 jennifer Dowling, - N.P. 12/17 Bupropion HCL 10/16 Hx Tablets 300mg 30tab 1 tab po qam 311 Cristy ER 24HR jennifer Dowling, - N.P. 10/30 305.1 Lexapro 10/16/2012 - Hx Tablets 10mg 90tabs 1 po qd 311 Cristy 12/17/2012 Nitesh, N.P. Wellbutrin SR 08/15/2012 - Hx Tablets ER 100mg 60tabs 1 po bid 311 Carlo Lito 10/16/2012 12HR Jacques Barr M.D.,[facility] Bactrim DS 04/18/2012 - Hx Tablets 800-160 10tabs 1 po bid Alexis 08/15/2012 mg for 5 days Jacques Barr M.D.,[facility] Trazodone HCL 03/20/2012 - Hx Tablets 100mg 30tabs 1/2-1 po Alexis 08/15/2012 qhs prn Jacques Barr M.D.,[facility] Lexapro 01/09/2012 - Hx Tablets 10mg 135tabs 1.5 tabs po [facility] 10/16/2012 qd Jacques Barr M.D.,[facility] Alprazolam 10/12/2011 - Hx Tablets 0.5mg 30tabs 1 po qhs 780.5 Carlo Lito 08/15/2012 prn 2 Jacques Barr M.D.,[facility] Patanol 10/12/2011 - Hx Solution 0.1% 1Bottle 1 gtts ou 372.1 Alexis 10/16/2012 bid prn 4 Jacques Barr M.D.,[facility] Pennsaid 10/12/2011 - Hx Solution 1.5% 15ml 5-10 ggts l 726.3 Alexis 08/15/2012 elbow bid 2 milvia Amezquita M.D.,[facility] Ondansetron Odt 03/20/2011 - Hx Tablets 4mg 20tabs po tid prn Carlos Morse 03/22/2011 Dispers Jacques Barr M.D.,[facility] Metronidazole 03/20/2011 - Hx Tablets 250mg 30tabs tid for 10 Carlos Morse 04/05/2011 days Jacques Barr M.D.,[facility] Bactrim DS 03/08/2011 - Hx Tablets 800-160 10tabs 1 po bid Alexis 03/14/2011 mg for 5 days Jacques Barr M.D.,[facility]ASP Amoxicillin 03/06/2011 - Hx Capsules 500mg 15caps 1 po tid Leo 03/08/2011 Jeremy Tinajero Ciprofloxacin 01/26/2011 - Hx Tablets 250mg 10tabs 1 bid x 5 Alexis HCL 02/02/2011 days Jacques Barr M.D.,YASP Chantix 06/23/2010 - Hx Tablets 0.5mg X 1mon starter 305.1 Alexis 03/06/2011 11 & 1 pack as Jacques Barr, mg X directed Jeremy,[facility] Lexapro - Hx Tablets 20mg 90tabs 1 tablet po Alexis 10/12/2011 qd Jacques Barr M.D.,[facility] Restasis - Hx Emulsion 0.05% 1Mon one [...] Capsules 30caps 2 po qd Unknown 08/20/2013 [place] 3 - Hx Capsules 90caps 2 po qd Unknown 08/20/2013 Probiotic - Hx Capsules 14caps 1 po qd Unknown 02/17/2015 Trazodone HCL - Hx .25mg As needed Unknown 05/08/2018 for sleep Immunizations CPT Code Status Date Vaccine Lot # 42759 Given 09/09/2009 Tetanus And Diptheria (Td) For Adult Use Preservative Free 46362 Refused 08/20/2013 Flu Vaccine Split Virus Preservative Free For Indiv 3Yr Older 76012 Refused 08/15/2012 Zoster (Zostavax) 04718 Refused 08/15/2012 Pneumonia Vaccine 34683 Refused 10/12/2011 Influenza Virus 3Yrs & Over 48313 Refused 06/23/2010 Pneumonia Vaccine 34262 Refused 06/23/2010 Influenza Virus 3Yrs & Over Vital Signs Date Vital Result Comment 05/08/2018 Height 64.24 inches 5'4.24" Weight 131.00 [...] Color Yellow Urine Appearance Clear Urine Specific [place] 1.014 1.010-1.030 Urine pH 7.0 5-9 Urine [...] % 0.1 Laboratory test finding 02/17/2015 Cytology Non-Blast Furnace Keeper ` Laboratory test finding 03/01/2014 Inr 0.91 [...] >60 9 Ua Routine 10/16/2012 Ua Specific [place] 1.005 Ua PH 6.0 Ua Color yellow Ua Appera clear Ua WBC 0 Ua Protein 0 Ua Glucose 0 Ua Ketones 0 Ua Bilirubin 0 Ua Urobilinogen 0 Ua Nitrite 0 Ua Occult Blood large Vitamin D, 25 Hydroxy 10/06/2012 25-Hydroxy Vitamin D2 <4.0 ng/mL 25-Hydroxy Vitamin D3 51 ng/mL 25-Hydroxy Vitamin D Total 51 ng/mL 10 Giardia Lamblia 07/03/2011 Giardia Antigen Giardia antigen <SEE 11, 12 Antigen Screen NOTE> Giardia Antigen Screen NEGATIVE BY IMMU <SEE NOTE> 11, 13 Laboratory test finding 07/03/2011 C. Difficile Toxin A TNP 11, 14 B Stool For Blood 03/20/2011 Stool For Blood [...] NEGATIVE BY IMMU <SEE NOTE> 15, 23 Comp Metabolic Panel 03/14/2011 Sodium 134 mmol/L Low 135-145 Potassium 4.6 mmol/L 3.5-5.0 Chloride 98 mmol/L Low 101-111 Co2 (Carbon Dioxide) 23.0 mmol/L 22-32 Anion Gap 13.0 mmol/L High 2-11 24 Glucose 80 mg/dL 70-100 BUN 15 mg/dL 6-24 Creatinine 1.00 mg/dL 0.50-1.40 One Over Creatinine 1.00 BUN/Creatinine Ratio 15.0 8-20 Calcium 9.5 mg/dL 8.1-9.9 Total Protein 6.8 GM/DL 6.2-8.1 Albumin 4.5 GM/DL 3.6-5.4 Globulin 2.3 GM/DL 2-4 Albumin/Globulin Ratio 2.0 1-3 Bilirubin Total 0.6 mg/dL 0.4-1.5 25 Alkaline Phosphatase 60 U/L 30-110 Alt (SGPT) 17 U/L 14-54 Ast (Sgot) 26 U/L 12-42 eGFR Non- 56.9 > 60 eGFR 73.2 > 60 26 Laboratory test finding 03/14/2011 TSH 1.18 MIU/ML 0.34-5.60 CA 125 (Ovarian Cancer Ag) 17.3 U/ML 2.0-35.0 27 CBC Auto Diff 03/14/2011 White Blood [...] Eosinophils 0.1 0-0.6 Abs Basophils 0 0-0.2 GC/Chlamydia Aptima 03/14/2011 Chlamydia Trachomatis Rna N 28 Laboratory test finding 03/14/2011 Cytology 29 <SEE NOTE> GC (N. Gonorrhoeae) Rna N 30 Urine Culture & Sensitivi 03/14/2011 Urine Culture Sensitivi NG 31 Urine Culture & Sensitivi 03/06/2011 Urine Culture Sensitivi SN1 32 Urinalysis W/Microscopic 03/06/2011 Ua Color YELLOW Yellow Appearance-Urine CLEAR Clear Specific [place]-Ur 1.020 1.010-1.030 Esterase-Urine 1+ Negative Nitrite NEGATIVE Negative Kytlhuywgjpq-Gp-FHN NEGATIVE Negative Protein-Urine NEGATIVE Negative PH-Urine 7.0 5-9 Blood-Urine 2+ Negative Ketones-Urine NEGATIVE Negative Bilirubin-Ur NEGATIVE Negative Glucose-Urine NEGATIVE Negative WBC-Urine 1-3 0-5 RBC-Urine 1-3 0-2 Epith Cells-Ur FEW None Bacteria-Urine 1+ None Amorphous Sed-U 2+ None Sensitivities For Urine Culture 01/26/2011 Ampicillin <=2 Amikacin <=2 Ciprofloxacin <=0.25 Ceftriaxone <=1 Cefazolin <=4 Nitrofurantoin <=16 Gentamicin <=1 Imipenem <=1 Levofloxacin <=0.12 Trimeth-Sulfa <=20 Ceftazidime <=1 Tigecycline <=0.5 Piperacillin/Tazobactam KB 29 Urinalysis W/Microscopic 01/26/2011 Ua Color YELLOW Yellow Appearance-Urine CLEAR Clear Specific [place]-Ur 1.010 1.010-1.030 Esterase-Urine 2+ Negative Nitrite NEGATIVE Negative Idaanivwxyoc-Ig-IUQ NEGATIVE Negative Protein-Urine NEGATIVE Negative PH-Urine 6.0 5-9 Blood-Urine 2+ Negative Ketones-Urine NEGATIVE Negative Bilirubin-Ur NEGATIVE Negative Glucose-Urine NEGATIVE Negative WBC-Urine TNTC 0-5 RBC-Urine 2-6 0-2 Epith Cells-Ur SMALL None Bacteria-Urine 1+ None Urine Culture & 01/26/2011 Urine Culture ESCHERICHIA COLI 33 Sensitivi Sensitivi Vitamin D, 25 Hydroxy 07/18/2010 25-Hydroxy Vitamin [...] mg/dL High Less Than 100 40 1 [id number] 2 SEE RESULT BELOW Name: RADHANEGRITO [place] : [address]: Nacho Davis MD Acct: [id number] Unit: [id number] AGE: 67 Location: [facility] Re01/14/18 SEX: F Status: KALPANA MILAN SPEC: [id number] ANNAMARIE: 01/14/18-[address]: Nacho Davis MD REQ: [id number] RECD: 01/14/18-1240 STATUS: VERONICA MALAVE DR: Alexis Barr MD _ ORDERED: LEVEL 1 COMMENTS: [id number] FINAL DIAGNOSIS Skin, bilateral upper eyelids, excision: [...] 1114 END OF REPORT DEPARTMENT OF PATHOLOGY, [address] [place] [address] Rajeev Covington M.D. Director [facility] # [id number] 3 Because ethnic data is not always [...] 0.03 ng/mL Not supportive of diagnosis of SC 0.03 - 0.50 ng/mL Indeterminate: suggest serial studies if clinically indicated. Greater than 0.5 ng/mL Consistent with diagnosis of SC 6 RUN DATE: 10/09/13 [facility] LAB LIVE PAGE 1 RUN TIME: [address] [place] [address] Specimen Inquiry Name: SHILPILANINEGRITO : [address]: Ju Nice NP Acct: [id number] Unit: [id number] AGE: 63 Location: [facility] Re10/08/13 SEX: F Status: REG REF SPEC: [id number] ANNAMARIE: 10/08/13-1215 [facility] DR: Ju Nice NP REQ: [id number] RECD: 10/08/13 STATUS: VERONICA MALAVE DR: Alexis [...] Abnormal Pap Smears?:N Signed (signature on file) ABHAY Burton (ASCP) 10/09/13 5414 This Pap test was evaluated with the assistance of the GrapheneaPrep Test Imaging System. Due to cytologic findings at the senior software test engineer microscope, comprehensive manual rescreening by a [employer] Operations Consultant may be required. The Pap Smear is [...] performed at Main Lab DEPARTMENT OF PATHOLOGY, [address] [place] [address] Rajeev Covington M.D. Director [facility] Permit #[id number] HDL Interpretation: Undesirable: High Risk: Less [...] normal population are 25-80 Test Performed by: [address] [address] Egg Worker: Gene Tolbert III, M.D. 11 C. DIFFICILE TOXIN TESTING IS NOT PERFORMED ON FORMED STOOL SPECIMENS. TEST OF CURE ON POSITIVE PATIENTS IS NOT RECOMMENDED. 12 Giardia antigen testing performed by immunoassay. If patient is immunocompromised or has traveled to or is from a developing country, a full ova and parasite exam with microscopic (OPMIC) is recommended. All samples will be held one month in case full ova and parasite testing is requested. Contact the Microbiology Department at [phone]. 13 NEGATIVE BY IMMUNOASSAY 14 Test not performed [address] BARR BY JULIO AT 1428 ON 03/21/11. Results read back accurately. RESULTS SENT TO [facility] INFECTION CONTROL NURSE ON 03/21/11 AT 1428 [...] is requested. Contact the Microbiology Department at [phone]. 19 POSITIVE BY IMMUNOASSAY 20 NEGATIVE BY [...] VERBAL TO HI AMAYA/DR. BARR'S OFFICE BY [facility] at 1520 on 03/21/11. Results read back accurately. 23 NEGATIVE BY IMMUNOASSAY 24 Anion gap measurement may be of limited value in the presence of any alkalosis, especially in a combined acid base disorder. . 25 A metabolite of Naproxen, O-desmethylnaproxen, has been shown to interfere with the Jendrassik-Mekhi method for measuring total bilirubin. Samples from patients who have taken Naproxen have shown spurious elevation in total bilirubin levels. 26 Because ethnic data is not always readily [...] 15-29 5 Kidney failure <15 (or dialysis) 27 The CA 125 assay is not recommended as a cancer screening test, but rather as an aid in monitoring response to therapy for patients with epithelial ovarian cancer. Serial testing for patients CA 125 assay values should be used in conjunction with other methods used for screening ovarian cancer. . 28 NEGATIVE FOR CHLAMYDIA TRACHOMATIS rRNA A negative result does not preclude the presence of a C.trachomatis or N.gonorrhoeae infection because results are dependent on adequate specimen collection, absence of inhibitors, and sufficient rRNA to be detected. Test results may be affected by improper specimen collection, improper specimen storage, technical error, or specimen mixup. 29 ---- RUN DATE: 03/15/11 [facility] NMI LIVE PAGE 1 RUN TIME: 1233 Specimen Inquiry RUN USER: INTERFACE -- Name: NEGRITO GARCIA Status: REG REF Re03/14/11 Age/Sex: 60/F Unit#: [id number] [facility] [birth year] -- Specimen: [id number] SOUT Spec Date: 03/14/[address]: Alexis Barr MD Spec Type: CYTOLOGY Received: 03/15/11-819 Copies to: SOURCE ECTOCERVICAL/ENDOCERVICAL Thin Prep with [...] was evaluated with the assistance of the GrapheneaPrep Pap Test Imaging System. However, due to technical or cytologic issues, the imaging could not be completed. Comprehensive manual rescreening by a [employer] Operations Consultant was performed. The Pap Smear is a [...] three years. Initial evaluation performed by Chi DOWNEY(ASCP) 03/15/11 Final Interpretation electronically signed by: Chi DOWNEY CT([facility]) 03/15/11 1127 -- DEPARTMENT OF PATHOLOGY, [address] [place] [address] [facility] Permit #[id number] Rajeev Covington M.D. Director Iman Johnson M.D. Service Assistant Dir ady -- 30 NEGATIVE FOR NEISSERIA GONORRHOEAE rRNA A negative result does not preclude the presence of a C.trachomatis or N.gonorrhoeae infection because results are dependent on adequate specimen collection, absence of inhibitors, and sufficient rRNA to be detected. Test results may be affected by improper specimen collection, improper specimen storage, technical error, or specimen mixup. 31 FINAL: NO GROWTH DAY 2 (<1,000 CFU/mL) 32 SCANT NORMAL URETHRAL OR PERINEAL DULCE 33 75^50-75,000 ORGANISMS/ML (MANY)^CCU 34 -- REFERENCE VALUE -- 25-HYDROXY D TOTAL (D2+D3) Optimum levels in the normal population are 25-80 Test Performed by: [facility] Dpt of Lab Med and Pathology [address] [place] [address] Egg Worker: Gene Tolbert III, M.D. 35 Anion gap measurement may be of limited value in the presence of any alkalosis, especially in a combined acid base disorder. . 36 Note change in reference range as of 04/29/08. The change was based on recommendations from the [place] [employer]. 37 Because ethnic data is [...] 05/03/2017 Bone Mineral Density Test Completed 04/24/2017 57148 EKG Tracing & Interpretation Completed 11/29/2016 Mammogram Completed 03/02/2014 71865 EEG Recording Awake & Drowsy Completed 03/02/2014 31264 ECHO Transthorasic Realtime Completed 2D W Doppler & Color Flow Hosp 09/23/2013 Colonoscopy Completed 10/23/2012 Mammogram Completed 07/18/2010 Mammogram Completed 01/11/2009 Bone Mineral Density Test Completed 01/11/2009 Mammogram Completed 08/08/50 Colonoscopy Completed Encounters Type Date Location Provider CPT E/M Dx Office Visit 04/27/2018 [place] [address] R06.83 10:00a [facility] Z87.891 Office Visit 03/19/2018 11:40a [facility] Internal Alexis Barr, [address]272 G47.33 Medicine - [address] MRobyn,FACP Office Visit 01/03/2018 1:20p [facility] Estefany Smiley, DORMITORY COUNSELOR [address]5501 Z01.818 Medicine - [address] H02.403 M85.9 Office Visit 11/13/2017 2:00p [facility] Reina Kenya, QUALITY ASSURANCE AUDITOR 44890 R05 Medicine - [address] Office Visit 11/07/2017 8:40a [facility] Reina Kenya, QUALITY ASSURANCE AUDITOR 79501 H02.403 Medicine - [address] R05 Z01.818 Office Visit 02/22/2017 9:40a [facility] Internal Alexis Barr, 64273 G47.30 Medicine - [address] Jacky.Jacques,FACP F17.211 Office Visit 05/09/2016 11:50a [facility] Internal Medicine Alexis Barr, 24362 J43.[address] M.Jacques,FACP F17.218 F41.9 Office Visit 04/23/2016 9:30a [facility] Internal Alexis Barr, 83774 Z00.00 Medicine - [address] M.DAyad,FACP F41.9 F17.218 Z12.2 Z12.31 Office Visit 02/17/2015 11:10a [facility] Internal Medicine Alexis Barr, 37967 V70.0 - [address] Antony Luna,FACP 300.00 V76.19 599.72 Office Visit 03/08/2014 1:40p [facility] Internal Medicine Alexis Barr, 46879 780.2 - Nanyc Luna,FACP 753.4 110.3 Office Visit 03/01/2014 12:48p [facility] Aleida Watkins M.D. 71432 780.97 [facility] 784.3 368.9 780.8 Office Visit 03/01/2014 2:25p [facility], Sarah Brown, 24843 784.3 Hospitalists 991.6 780.97 784.0 Office Visit 11/23/2013 4:40p [facility] Medicine Alexis DAyad Barr, 44779 533.70 - Nancy Luna,FACP 787.99 Office Visit 08/20/2013 10:10a [facility] Medicine Alexis DAyad Barr, 70226 V70.0 - Nancy Luna,FACP 305.1 311 V76.51 691.8 Office Visit 01/19/2013 11:40a [facility] Internal Medicine Cade GonzalesAyad Sapp, 11623 V58.32 - Nancy Luna Office Visit 01/16/2013 1:30p [facility] Medicine Cristy Dowling, 61719 V58.32 - Mancos N.P. Office Visit 12/17/2012 1:40p [facility] Medicine Alexis Barr, 46383 599.72 - Nancy Luna,FACP 305.1 311 Office Visit 10/30/2012 11:30a [facility] Medicine Cristy Dowling, N.P. 87494 585.3 - [place] 305.1 V77.91 V76.10 Office Visit 10/16/2012 11:00a [facility] Medicine Cristy Dowling, N.P. 35562 599.0 - [place] 311 305.1 599.70 Office Visit 08/15/2012 10:00a [facility] Medicine Alexis Barr, 73946 V70.0 - Nancy Luna,FACP 311 305.1 V76.19 Office Visit 10/12/2011 1:00p [facility] Internal Medicine Alexis Barr, 95203 780.52 - Nancy Luna,FACP 372.14 726.32 Office Visit 04/05/2011 4:20p DO Not Use Negative Retoucher AT Alexis Barr, 36328 524.60 Pamela Luna,FACP 446.5 Office Visit 03/22/2011 8:30a DO Not Use Negative Retoucher AT Alexis Barr, 99471 007.1 Pamela Luna,FACP Office Visit 03/14/2011 1:20p DO Not Use Negative Retoucher AT Alexis Barr, 40728 789.04 Pamela Luna,FACP 599.0 783.21 V76.2 Office Visit 06/23/2010 3:40p DO Not Use Negative Retoucher AT Alexis Barr, 91729 V70.0 Pamela Luna,FACP V76.10 305.1 300.00 Office Visit 12/23/2008 10:20a DO Not Use Negative Retoucher AT Alexis Barr, 14699 V70.0 Pamela Luna,FACP 733.90 V76.10 311 Plan of Care Future Appointment(s):05/13/2019 10:20 am - Alexis Barr M.D.,FACP at [facility] Medicine - [address]05/15/2018 11:30 am - Jessica Aguiar DNP, RN, DORMITORY COUNSELOR- BC at [facility]05/08/2018 - Alexis Barr M.D., FACPZ00.01 Encounter for general adult medical exam w abnormal findingsComments: Advised flu vaccine in fall. Routine Health Maintenance up to date. Depression screen: on fileADL screen: negativeAdvance directives:on file Cognitive impairment screen: negative Reviewed [facility] DM/HM form.Z87.891 Personal history of nicotine dependenceComments:Please complete CT of your lungs due to your history of smoking.R06.83 SnoringComments:Continue to follow up with Dr. Naik for insomnia and snoring.M85.88 Oth disrd of bone density and structure, other siteComments:Discussed the results of your Dexa scan.M25.552 Pain in left hipComments:Discussed your options are to continue to receive cortisone shots and see if this will improve your pain or completing more advanced imaging of your hip. Discussed you would like to continue with the cortisone shots for now.Please continue to follow up with physical therapy and receiving cortisone shots as directed.You may take Hydrocodone as needed for pain.
--- NOTE | 2018-05-16 16:23 | UC ---
Abdominal Pain Female HPI - HPI Summary HPI Summary: The patient is a 68 y/o F presenting to [facility] with a chief complaint of intermittent diffuse lower abd pain starting at 0430 this morning. The stabbing pain has been worsening, and is currently rated 9/10 in severity. The pain radiates to her lower back. The pain is not aggravated or alleviated by anything. She additionally c/o nausea without vomiting and some diarrhea. She has not experienced this pain before. - History of Current Complaint Stated Complaint: ABDOMINAL PAIN Time Seen by Provider: 05/16/18 16:12 Hx Obtained From: Patient Onset/Duration: Sudden Onset, Lasting Hours - starting 0430 this morning, Still Present Severity Initially: Severe Severity Currently: Severe Pain Intensity: 9 Pain Scale Used: 0-10 Numeric Location: Diffuse - lower abd Radiates: Yes Radiates to: Back Character: Other - stabbing Associated Signs and Symptoms: Positive: Back Pain, Nausea, Diarrhea. Negative : Vomiting Female Torso: 1 - diffuse lower abd pain Allergies/Adverse Reactions: Allergies Allergy/AdvReac Type Severity Reaction Status Date / Time amoxicillin Allergy Nausea Verified 05/16/18 16:55 clindamycin Allergy Nausea Verified 05/16/18 16:55 PMH/Surg Hx/FS Hx/Imm Hx Endocrine History: Other Other Endocrine History: NEGATIVE: diabetes Cardiovascular History: Other Other Cardiovascular History: NEGATIVE: HTN GI/ History: Other Other GI/ History: microscopic hematuria Psychological History: Anxiety, Depression, Other Other Psychological History: claustrophobia - Surgical History Surgical History: Yes Surgery Procedure, Year, and Place: 07/20/90 - Family History Known Family History: Negative: Cardiac Disease - Social History Alcohol Use: Daily Alcohol Amount: 1-2 glass of wine Substance Use Type: None Smoking Status (MU): Former Smoker Type: Cigarettes Amount Used/How Often: 1 pack a day for 40 yrs When Did the Patient Quit Smoking/Using Tobacco: 2016 - Immunization History Most Recent Influenza Vaccination: 2004 Most Recent Tetanus Shot: 2009 Most Recent Pneumonia Vaccination: never Review of Systems Gastrointestinal: Abdominal Pain - diffuse lower abd, Diarrhea, Nausea, Other - NEGATIVE: vomiting Musculoskeletal: Other: - pain in lower back All Other Systems Reviewed And Are Negative: Yes Physical Exam - Summary Physical Exam Summary: VITAL SIGNS: Reviewed. GENERAL: Patient is a well-developed and nourished female who is lying comfortable in the stretcher. Patient is not in any acute respiratory distress. HEAD AND FACE: Normocephalic EYES: PERRLA, EOMI x 2. EARS: Hearing grossly intact. MOUTH: Oropharynx within normal limits. NECK: Supple, trachea is midline, no adenopathy, no JVD, no carotid bruit. CHEST: Symmetric, no tenderness at palpation LUNGS: Clear to auscultation bilaterally. No wheezing or crackles. CVS: Regular rate and rhythm, S1 and S2 present, no murmurs or gallops appreciated. ABDOMEN: Soft, lower abd tenderness with some guarding but no rebound. Bowel sounds are normal. No abdominal abnormal pulsations. EXTREMITIES: Full ROM in all major joints, no edema, no cyanosis or clubbing. NEURO: Alert and oriented x 3. No acute neurological deficits. Speech is normal and follows commands. SKIN: Dry and warm Triage Information Reviewed: Yes Vital Signs Reviewed: Yes Abd Pain Female Course/Dx - Course Course Of Treatment: Patient is a 68-year-old female who presents to the urgent care with a chief complaint of severe lower abdominal pain. Pain is 8/9 out of 10 with radiation to the back. She has nausea without vomiting and she also has diarrhea. Diarrhea is watery without any blood or mucus. Because of the severe symptoms I believe the patient would benefit of blood work and possibly another pelvic CT, IV fluids and control of the pain. Therefore the patient was referred to the emergency department for further workup and management. Patient declined ambulance transport, she reports that her will be driving the patient to the emergency department. Patient was also found to be hypertensive possibly secondary to the pain. Patient is hemodynamically stable. - Differential Dx/Diagnosis Provider Diagnoses: Lower abdominal pain Discharge - Sign-Out/Discharge Documenting (check all that apply): Patient Departure - Patient will be discharged with instruction to go to [facility] immediately. All imaging exams completed and their final reports reviewed: No Studies - Discharge Plan Condition: Stable Disposition: HOME-RECOMMEND TO ED Patient Education Materials: Acute Abdominal Pain (DC) Referrals: Alexis Noriega MD [Primary Care Provider] - Additional Instructions: Patient will be discharged to the emergency department for further workup and management. The patient declined - Billing Disposition and Condition Condition: STABLE Disposition: Home-Recommend to ED - Attestation Statements Document Initiated by Ankur: Yes Documenting Scribe: Sherrell Sorto Provider For Whom Ankur is Documenting (Include Credential): Dr. Cade Crawley MD Scribe Attestation: Sherrell Hampton scribed for Dr. Cade Crawley MD on 05/16/18 at 1908. Scribe Documentation Reviewed: Yes Provider Attestation: The documentation as recorded by the Sherrell vick accurately reflects the service I personally performed and the decisions made by me, Dr. Cade Crawley MD
[2018-05-16 16:32] VITALS: BP 180/110
== END 2018-05-16 16:33 | disposition home health service (06) ==
LOC: UCEAST 15:50
DX: R10.30 Lower abdominal pain, unspecified (principal); R11.0 Nausea; R19.7 Diarrhea, unspecified; Z88.1 Allergy status to other antibiotic agents; Z88.0 Allergy status to penicillin; Z87.891 Personal history of nicotine dependence
CPT/HCPCS: 99212; G0463

== ENCOUNTER 2018-05-16 16:50 | Observation (INO) | payer MEDICARE, OTHER, BC ==
[2018-05-16] MEDS ORDERED: NS 0.9% 1000 ML* 2,000 ML IV ONE (18:39)
[2018-05-16] MEDS ORDERED: Ondansetron INJ* 2 MG/ML VIAL IV ONE (18:39)
[2018-05-16] MEDS ORDERED: Morphine VIAL* 4 MG/ML VIAL (1 ml vial) IV ONE ×2 (18:39→21:37)
[2018-05-16] MEDS ORDERED: Morphine INJ* 2 MG/ML 1 ML SYRINGE (TWO MG - NEW SYRINGE VERSION) ONE (18:47)
[2018-05-16] MEDS ORDERED: Morphine INJ* 2 MG/ML 1 ML SYRINGE (TWO MG - NEW SYRINGE VERSION) IV ONE (19:03)
[2018-05-16 19:07] LABS: ABS Basophils 0 10^3/ul (0-0.2); ABS Eosinophils 0 10^3/ul (0-0.6); ABS Lymphocytes 0.6 10^3/ul (1.0-4.8); ABS Monocytes 0.4 10^3/ul (0-0.8); ABS Neutrophils 7.2 10^3/ul (1.5-7.7); ABS Nucleated RBC 0 10^3/ul; Eosinophil % 0.4 % (0-6); Hematocrit 40 % (35-47); Hemoglobin 13.5 g/dl (12.0-16.0); Lymphocyte % 7.8 % (25-47); Mean Corpuscular HGB Conc 34 g/dl (31-36); Mean Corpuscular Hemoglobin 32 pg (27-31); Mean Corpuscular Volume 94 fL (80-97); Nucleated Red Blood Cells % 0.1; Platelet Count 265 10^3/ul (150-450); Red Blood Count 4.22 10^6/ul (4.00-5.40); Red Cell Distribution Width 13 % (10.5-15); White Blood Count 8.3 10^3/ul (3.5-10.8)
[2018-05-16 19:18] LABS: EGFR Non-African American 76.1 (>60)
--- NOTE | 2018-05-16 19:59 | ED ---
Abdominal Pain/Female - HPI Summary HPI Summary: This patient is a 68 year old F presenting to [facility] with a chief complaint of lower abd pain persisting throughout the day since 0430. She endorses diarrhea last night, denies any factors that alleviate or worsen sx, and pain starting to radiate around her flanks and onto her back. She endorses some nausea but no vomiting. SHx , no other SHx. Rx Welbutrin for PMHx depression. - History of Current Complaint Chief Complaint: EDAbdPain Stated Complaint: ABD AND BACK PAIN Time Seen by Provider: 05/16/18 18:14 Hx Obtained From: Patient Onset/Duration: Lasting Hours, Still Present Timing: Constant Severity Initially: Severe Severity Currently: Severe Pain Intensity: 9 Pain Scale Used: 0-10 Numeric Location: Discrete At: RLQ, Discrete At: LLQ Radiates: Yes Radiates to: Back, Flank Aggravating Factor(s): Nothing Alleviating Factor(s): Nothing Associated Signs and Symptoms: Positive: Back Pain, Nausea, Diarrhea. Negative : Fever, Vomiting Allergies/Adverse Reactions: Allergies Allergy/AdvReac Type Severity Reaction Status Date / Time amoxicillin Allergy Nausea Verified 05/16/18 16:55 clindamycin Allergy Nausea Verified 05/16/18 16:55 PMH/Surg Hx/FS Hx/Imm Hx Endocrine/Hematology History: Denies: Hx Diabetes Cardiovascular History: Denies: Hx Congestive Heart Failure, Hx Hypertension, Hx Pacemaker/ICD Respiratory History: Denies: Other Respiratory Problems/Disorders History: Reports: Other Problems/Disorders - microscopic hematuria for many years Musculoskeletal History: Reports: Hx Arthritis - not diagnosed, great toe, hips , hands Denies: Hx Osteoporosis, Other Musculoskeletal History Sensory History: Reports: Hx Contacts or Glasses - glasses Denies: Hx Deafness, Hx Hearing Aid Opthamlomology History: Reports: Hx Contacts or Glasses - glasses EENT History: Denies: Hx Deafness Neurological History: Denies: Other Neuro Impairments/Disorders Psychiatric History: Reports: Hx Anxiety - on meds, Hx Depression - on meds Denies: Hx Panic Disorder - Surgical History Surgery Procedure, Year, and Place: 07/20/90 Hx Anesthesia Reactions: No - Immunization History Date of Tetanus Vaccine: 2 years ago per patient Immunizations Up to Date: Yes Infectious Disease History: No Infectious Disease History: Denies: Traveled Outside the [place] in Last 30 Days - Family History Known Family History: Negative: Cardiac Disease - Social History Lives: With Family Alcohol Use: Daily Alcohol Amount: 1-2 glass of wine Substance Use Type: Reports: None Smoking Status (MU): Former Smoker Type: Cigarettes Amount Used/How Often: 1 pack a day for 40 yrs Review of Systems Negative: Fever Positive: Abdominal Pain, Diarrhea, Nausea. Negative: Vomiting Positive: flank pain Positive: Myalgia - back pain All Other Systems Reviewed And Are Negative: Yes Physical Exam - Summary Physical Exam Summary: Appearance: Well-appearing, Well-nourished, lying in bed comfortably Skin: Warm, dry, no obvious rash Eyes: sclera anicteric, no conjunctival pallor ENT: mucous membranes moist, pharynx appears normal Neck: Supple, nontender Respiratory: Clear to auscultation, no signs of respiratory distress Cardiovascular: Normal S1, S2. No murmurs. Normal distal pulses in tibial and radial bilaterally. Abdomen: Soft, generalized abd tenderness without peritoneal signs, normal active bowel sounds present Musculoskeletal: Normal, Strength/ROM Intact Neurological: A&Ox3, awake and alert, mentation is normal, speech is fluent and appropriate Psychiatric: affect is normal, does not appear anxious or depressed Triage Information Reviewed: Yes Vital Signs On Initial Exam: Initial Vitals Temp Pulse Resp BP Pulse Ox 97.4 F 72 18 167/92 100 05/16/18 16:52 05/16/18 16:52 05/16/18 16:52 05/16/18 16:52 05/16/18 16:52 Vital Signs Reviewed: Yes Diagnostics - Vital Signs Vital Signs Temp Pulse Resp BP Pulse Ox 05/16/18 19:29 66 185/102 99 05/16/18 19:27 64 204/112 97 05/16/18 19:04 18 05/16/18 19:03 62 205/97 99 05/16/18 19:00 62 99 05/16/18 18:57 70 100 05/16/18 16:52 97.4 F 72 18 167/92 100 - Laboratory Lab Results: Lab Results 05/16/18 05/16/18 Range/Units 18:50 18:50 WBC 8.3 (3.5-10.8) 10^3/ul RBC 4.22 (4.00-5.40) 10^6/ul Hgb 13.5 (12.0-16.0) g/dl Hct 40 (35-47) % MCV 94 (80-97) fL MCH 32 H (27-31) pg MCHC 34 (31-36) g/dl RDW 13 (10.5-15) % Plt Count 265 (150-450) 10^3/ul MPV 7.0 L (7.4-10.4) um3 Neut % (Auto) 86.9 H (38-83) % Lymph % (Auto) 7.8 L (25-47) % Falls % (Auto) 4.5 (0-7) % Eos % (Auto) 0.4 (0-6) % Baso % (Auto) 0.4 (0-2) % Absolute Neuts (auto) 7.2 (1.5-7.7) 10^3/ul Absolute Lymphs (auto) 0.6 L (1.0-4.8) 10^3/ul Absolute Monos (auto) 0.4 (0-0.8) 10^3/ul Absolute Eos (auto) 0 (0-0.6) 10^3/ul Absolute Basos (auto) 0 (0-0.2) 10^3/ul Absolute Nucleated RBC 0 10^3/ul Nucleated RBC % 0.1 Sodium 136 (135-145) mmol/L Potassium 3.6 (3.5-5.0) mmol/L Chloride 100 L (101-111) mmol/L Carbon Dioxide 25 (22-32) mmol/L Anion Gap 11 (2-11) mmol/L BUN 11 (6-24) mg/dL Creatinine 0.76 (0.51-0.95) mg/dL Est GFR ( Amer) 92.1 (>60) Est GFR (Non-Af Amer) 76.1 (>60) BUN/Creatinine Ratio 14.5 (8-20) Glucose 113 H (70-100) mg/dL Calcium 9.7 (8.6-10.3) mg/dL Total Bilirubin 0.50 (0.2-1.0) mg/dL AST 19 (13-39) U/L ALT 14 (7-52) U/L Alkaline Phosphatase 57 (34-104) U/L Total Protein 6.9 (6.4-8.9) g/dL Albumin 4.4 (3.2-5.2) g/dL Globulin 2.5 (2-4) g/dL Albumin/Globulin Ratio 1.8 (1-3) Lipase 22 (11.0-82.0) U/L Result Diagrams: 05/17/18 07:29 05/17/18 07:29 Lab Statement: Any lab studies that have been ordered have been reviewed, and results considered in the medical decision making process. Re-Evaluation - Re-Evaluation First Eval Re-Evaluation Time: 20:46 Change: Worse Comment: Per RN Frank, Pt is in pain, although she looks comfortable. Second Eval Re-Evaluation Time: 21:32 Change: Unchanged Comment: Pt refuses to go to CT until she gets more pain medication. Third Eval Re-Evaluation Time: 22:58 Change: Unchanged Comment: Discussed plan of care with pt Abdominal Pain Fem Course/Dx - Course Course Of Treatment: A 68-year-old F presents to the ED with a CC of lower abd pain since 0430. (+) diarrhea, nausea, pain radiation around flanks and to back. (-) emesis. Denies alleviating and aggravating factors. In the ED course, pt was given morphine, zofran, and nl saline. Pt will be signed out to Dr. Pillai pending a CT A/P. - Diagnoses Provider Diagnoses: Colitis Discharge - Sign-Out/Discharge Documenting (check all that apply): Sign-Out Patient Signing out patient TO: Rajinder Pillai - CT A/P Receiving patient FROM: Mao Reyes - Discharge Plan Condition: Good Disposition: ADMITTED TO [facility] - Billing Disposition and Condition Condition: GOOD Disposition: Admitted to [facility] - Attestation Statements Document Initiated by Scribe: Yes Documenting Scribe: Benny Gilbert Provider For Whom Ankur is Documenting (Include Credential): Dr. Mao Reyes MD Scribe Attestation: Benny Hampton scribed for Dr. Mao Reyes MD on 05/19/18 at 1150. Scribe Documentation Reviewed: Yes Provider Attestation: The documentation as recorded by the Benny vick accurately reflects the service I personally performed and the decisions made by me, Dr. Mao Reyes MD
[2018-05-16] MEDS ORDERED: Iohexol 300* (CONTRAST) 10 ML SDV IV ONE (20:17)
[2018-05-16 21:00] LABS: Urine Appearance Clear; Urine Blood 2+ (Negative); Urine Color Straw; Urine Ketones 1+ (Negative); Urine Protein Negative (Negative); Urine Red Blood Cell 3+(>10/hpf) (Absent); Urine Specific Gravity 1.005 (1.010-1.030); Urine Urobilinogen Negative (Negative); Urine White Blood Cell Absent (Absent)
--- NOTE | 2018-05-16 22:47 | RAD ---
EXAM: CT Abdomen and Pelvis With Intravenous Contrast CLINICAL HISTORY: 68 years old, female; Pain; Abdominal pain; Localized; Lower; Prior surgery; Surgery date: 6+ months; Surgery type: 1989; Additional info: Lower abd pain and low back pain, pt went to and was referred to ed for further evaluation and CT scan. 3x days of loose stools TECHNIQUE: Axial computed tomography images of the abdomen and pelvis with intravenous contrast. All CT scans at this facility use at least one of these dose optimization techniques: automated exposure control; mA and/or kV adjustment per patient size (includes targeted exams where dose is matched to clinical indication); or iterative reconstruction. Coronal and sagittal reformatted images were created and reviewed. CONTRAST: 79 mL of ITSL304 administered intravenously. COMPARISON: OT - HIP LT HIP LEFT 2 VIEWS AND PELVIS 04/21/2018 1:22 PM FINDINGS: Lung bases: Normal. No mass. No consolidation. ABDOMEN: Liver: Normal. No masses. Portal and hepatic veins are patent. Gallbladder and bile ducts: Normal. No radiopaque calculi. No ductal dilation. Pancreas: Normal. No mass. No ductal dilation. Spleen: Normal. No splenomegaly. Adrenals: Normal. No mass. Kidneys and ureters: Normal. No solid mass. Stomach and bowel: Incompletely distended grossly normal stomach. Normal caliber small bowel. Mild wall thickening of the cecum through hepatic flexure with mild mesocolonic stranding. Remainder of the colon is normal. PELVIS: Appendix: No dilation or periappendiceal inflammation. Bladder: Thin-walled bladder with no focal nodularity, perivesicular stranding, or calcifications. Reproductive: Uterus and ovaries are normal. ABDOMEN and PELVIS: Intraperitoneal space: Normal. No pneumoperitoneum. No ascities. Bones/joints: The spine demonstrates mild degenerative changes at multiple levels. No fractures. No suspicious bone lesions. Soft tissues: Normal. No hernias. Vasculature: The aorta demonstrates mild atherosclerotic calcification. Patent IVC. No abdominal aortic aneurysm. Lymph nodes: Normal. No enlarged lymph nodes. IMPRESSION: Infectious colitis cecum through hepatic flexure.
[2018-05-16] MEDS ORDERED: fentaNYL* 50 MCG/ML 2 ML VIAL (100 MCG VIAL) IV SLOW PU ONE (22:58)
[2018-05-16] MEDS ORDERED: metroNIDAZOLE IV 500 MG/100ML* 500 MG/100 ML BAG IVPB ONE (22:59)
--- NOTE | 2018-05-16 22:59 | ED ---
Progress - Progress Note Progress Note: DIAG CT Abdomen/pelvis CT reveals, per radiologist, infectious colitis cecum through hepatic flexure. ED physician has reviewed this radiology report. Re-Evaluation - Re-Evaluation First Eval Re-Evaluation Time: 20:46 Change: Worse Comment: Per RN Frank, Pt is in pain, although she looks comfortable. Second Eval Re-Evaluation Time: 21:32 Change: Unchanged Comment: Pt refuses to go to CT until she gets more pain medication. Third Eval Re-Evaluation Time: 22:58 Change: Unchanged Comment: Discussed plan of care with pt Course/Dx - Course Course Of Treatment: A 68-year-old F presents to the ED with a CC of lower abd pain since 0430. (+) diarrhea, nausea, pain radiation around flanks and to back. (-) emesis. Denies alleviating and aggravating factors. In the ED course, pt was given morphine, zofran, and nl saline. Abdomen/pelvis CT reveals, per radiologist, infectious colitis cecum through hepatic flexure. Consult with Dr. Maciel (hospitalist) at 2304. He agrees to admit pt for further evaluation. Pt is agreeable with this plan. - Diagnoses Provider Diagnoses: Colitis - Provider Notifications Discussed Care Of Patient With: Alec Maciel Time Discussed With Above Provider: 23:04 Instructed by Provider To: Other - Consult with Dr. Maciel (hospitalist) at 2304. He agrees to admit pt for further evaluation. Discharge - Sign-Out/Discharge Documenting (check all that apply): Patient Departure - Admit to [facility], Receiving Sign-Out Receiving patient FROM: Mao Reyes - Upon shift change pending CT abdomen/ pelvis - Discharge Plan Condition: Stable Disposition: ADMITTED TO [facility] Referrals: Alexis Noriega MD [Primary Care Provider] - - Attestation Statements Document Initiated by Scribe: Yes Documenting Scribe: Alecia Winter Provider For Whom Scribe is Documenting (Include Credential): Rajinder Pillai MD Scribe Attestation: Alecia Hampton, scribed for Rajinder Pillai MD on 05/16/18 at 2307.
[2018-05-16] MEDS ORDERED: traMADol TAB* 50 MG PO PRN (23:31)
[2018-05-16] MEDS ORDERED: Acetaminophen TAB* 325 MG PO PRN (23:31)
[2018-05-16] MEDS ORDERED: Ondansetron ODT TAB* 4 MG PO PRN (23:31)
--- NOTE | 2018-05-16 23:40 | HP ---
H&P (Free Text) History and Physical: PCP: ROCIO Noriega MD Date/Time: 05/16/2018 2300 CC: abdominal pain HPI: Mrs Garcia is a 68YO female HX depression/anxiety presenting with onset 0430 of generalized abdominal pain radiating to the back associated with subjective F/C, sweats, nausea without emesis, & diarhea. She is has not checked for black or bloody content. She has not history of similar, no recent ABX, nor travel outside the area. She denies exacerbating or alleviating factors. PMedHx depression anxiety Ambulatory Orders Escitalopram (NF) [Lexapro (NF)] 10 mg PO DAILY 01/07/13 clonazePAM TAB(*) [Klonopin TAB(*)] 0.5 mg PO BID PRN 01/07/13 traZODone TAB* [Desyrel*] 50 mg PO BEDTIME PRN 01/07/13 buPROPion TAB* [Wellbutrin TAB*] 150 mg PO BID 03/01/14 Allergies amoxicillin Allergy (Verified 05/16/18 16:55) Nausea clindamycin Allergy (Verified 05/16/18 16:55) Nausea PSurgHx section B blepharoplasties SocHx: quit smoking 2 years ago, 1 glass wine daily, no recreational drugs; lives with ; full code status FamHx: Mother passed at 84 2nd Alzheimer's. Father passed at 72 2nd NH lymphoma. ROS: as above, otherwise reviewed and all were negative vitals: Vital Signs Temp 36.3 C 05/16/18 16:52 Pulse 74 05/17/18 00:03 Resp 18 05/16/18 23:58 BP 191/111 05/17/18 00:03 Pulse Ox 99 05/17/18 00:03 Intake & Output 05/16/18 05/16/18 05/17/18 11:59 23:59 11:59 Weight 58.513 kg Constitutional: NAD, normally developed, well-nourished elderly white female HEENM: atraumatic; sclera/conjunctiva: anicteric/clear; hearing: clinically intact; oropharynx: clear, mucosa moist Neck: soft tissue: non-tender; thyroid: normal Pulmonary: clear to auscultation bilaterally, good aeration, no accessory muscle use CV: RR/RR, normal S1S2, no carotid bruit, no jugular venous distention, 2+ B DP/ PT, no edema Abdominal: soft, non-distended, diffusely mild to moderately tender, no rebound/ guarding/rigidity, hyperactive bowel sounds, no hepatosplenomegaly or masses, no costovertebral angle tenderness Musculoskeletal: general: grossly intact, non-tender Integumental: normal appearance and texture of exposed skin Psychiatric orientation: AA&O to PPS affect: calm mood: cooperative/pleasant eye contact: good content: reliable responses: timely insight: good Testing: Lab Results 05/16/18 05/16/18 05/16/18 Range/Units 18:50 18:50 20:43 WBC 8.3 (3.5-10.8) 10^3/ul RBC 4.22 (4.00-5.40) 10^6/ul Hgb 13.5 (12.0-16.0) g/dl Hct 40 (35-47) % MCV 94 (80-97) fL MCH 32 H (27-31) pg MCHC 34 (31-36) g/dl RDW 13 (10.5-15) % Plt Count 265 (150-450) 10^3/ul MPV 7.0 L (7.4-10.4) um3 Neut % (Auto) 86.9 H (38-83) % Lymph % (Auto) 7.8 L (25-47) % [place] % (Auto) 4.5 (0-7) % Eos % (Auto) 0.4 (0-6) % Baso % (Auto) 0.4 (0-2) % Absolute Neuts (auto) 7.2 (1.5-7.7) 10^3/ul Absolute Lymphs (auto) 0.6 L (1.0-4.8) 10^3/ul Absolute Monos (auto) 0.4 (0-0.8) 10^3/ul Absolute Eos (auto) 0 (0-0.6) 10^3/ul Absolute Basos (auto) 0 (0-0.2) 10^3/ul Absolute Nucleated RBC 0 10^3/ul Nucleated RBC % 0.1 Sodium 136 (135-145) mmol/L Potassium 3.6 (3.5-5.0) mmol/L Chloride 100 L (101-111) mmol/L Carbon Dioxide 25 (22-32) mmol/L Anion Gap 11 (2-11) mmol/L BUN 11 (6-24) mg/dL Creatinine 0.76 (0.51-0.95) mg/dL Est GFR ( Amer) 92.1 (>60) Est GFR (Non-Af Amer) 76.1 (>60) BUN/Creatinine Ratio 14.5 (8-20) Glucose 113 H (70-100) mg/dL Calcium 9.7 (8.6-10.3) mg/dL Total Bilirubin 0.50 (0.2-1.0) mg/dL AST 19 (13-39) U/L ALT 14 (7-52) U/L Alkaline Phosphatase 57 (34-104) U/L Total Protein 6.9 (6.4-8.9) g/dL Albumin 4.4 (3.2-5.2) g/dL Globulin 2.5 (2-4) g/dL Albumin/Globulin Ratio 1.8 (1-3) Lipase 22 (11.0-82.0) U/L Urine Color Straw Urine Appearance Clear Urine pH 6.0 (5-9) Ur Specific [place] 1.005 L (1.010-1.030) Urine Protein Negative (Negative) Urine Ketones 1+ A (Negative) Urine Blood 2+ A (Negative) Urine Nitrate Negative (Negative) Urine Bilirubin Negative (Negative) Urine Urobilinogen Negative (Negative) Ur Leukocyte Esterase Negative (Negative) Urine WBC (Auto) Absent (Absent) Urine RBC (Auto) 3+(>10/hpf) A (Absent) Ur Squamous Epith Cells Present A (Absent) Urine Bacteria Absent (Absent) Urine Glucose Negative (Negative) CT abd/pel W, personally reviewed: IMPRESSION: Infectious colitis cecum through hepatic flexure. Impression: 68F HX depression/anxiety presents with presumptive infectious colitis DIAGNOSIS & PLAN Primary infectious colitis : IV ABX w/ ciprofloxacin & metronidazole : blood CX : IVFs : pain control : supportive care Secondary depression : in remission anxiety : continue escitalopram, bupropion, clonazepam, & trazodone Admission Rational: Inpatient as without the above interventions the risk of impending adverse outcome is unacceptably high; inappropriate for the outpatient setting DVTp: SCDs Code Status: full HCP:
[2018-05-16] MEDS: Levofloxacin 500 MG IVPREMIX(* 500 MG/100 ML BAG IVPB ONE (23:59)
[2018-05-17] MEDS: Levofloxacin 500 MG IVPREMIX(* 500 MG/100 ML BAG IVPB ONE (00:07)
[2018-05-17] MEDS ORDERED: LORazepam INJ* 2 MG/ML 1 ML VIAL IV ONE (00:15)
[2018-05-17] MEDS: NS 0.9% 1000 ML* 1,000 ML IV SCH ×2 (01:12→13:24)
[2018-05-17] MEDS: traZODone TAB* 50 MG TAB PO PRN ×2 (01:16→21:17)
[2018-05-17] MEDS: HYDROmorphone INJ1* 1 MG/ML SYRINGE IV PRN ×6 (01:17→21:17)
[2018-05-17] MEDS: Ciprofloxacin IV(*) 400 MG in D5W 250 ML BAG* 160 ML IVPB SCH ×2 (01:35→13:16)
[2018-05-17] MEDS: Omeprazole CAP* 20 MG PO SCH (06:59)
[2018-05-17 07:36] LABS: ABS Basophils 0 10^3/ul (0-0.2); ABS Eosinophils 0.1 10^3/ul (0-0.6); ABS Lymphocytes 0.8 10^3/ul (1.0-4.8); ABS Monocytes 0.6 10^3/ul (0-0.8); ABS Neutrophils 5.3 10^3/ul (1.5-7.7); ABS Nucleated RBC 0 10^3/ul; Eosinophil % 1.1 % (0-6); Hematocrit 36 % (35-47); Hemoglobin 12.4 g/dl (12.0-16.0); Lymphocyte % 11.6 % (25-47); Mean Corpuscular HGB Conc 34 g/dl (31-36); Mean Corpuscular Hemoglobin 32 pg (27-31); Mean Corpuscular Volume 93 fL (80-97); Mean Platelet Volume 6.6 um3 (7.4-10.4); Nucleated Red Blood Cells % 0; Platelet Count 239 10^3/ul (150-450); Red Cell Distribution Width 13 % (10.5-15); White Blood Count 6.8 10^3/ul (3.5-10.8)
[2018-05-17] MEDS: metroNIDAZOLE IV 500 MG/100ML* 500 MG/100 ML BAG IVPB SCH ×2 (07:43→16:25)
[2018-05-17 07:58] LABS: EGFR Non-African American 86.6 (>60)
[2018-05-17] MEDS: Citalopram TAB* 20 MG PO SCH (08:25)
[2018-05-17] MEDS: buPROPion TAB* 75 MG PO SCH ×2 (08:25→21:20)
--- NOTE | 2018-05-17 14:34 | PN ---
Subjective Date of Service: 05/17/18 Interval History: Requiring IV narcotics round the clock to control abdominal pain. Tolerated jello for lunch. No recorded fevers but she reports sweats. Still having diarrhea. Objective Active Medications: Acetaminophen (Tylenol Tab*) 650 mg PO Q6H PRN PRN Reason: FEVER/PAIN Bupropion HCl (Wellbutrin Tab*) 150 mg PO BID [facility] Last Admin: 05/17/18 08:25 Dose: 150 mg Citalopram Hydrobromide (Celexa Tab*) 20 mg PO DAILY [facility]; Protocol Last Admin: 05/17/18 08:25 Dose: 20 mg Clonazepam (Klonopin Tab(*)) 0.5 mg PO BID PRN PRN Reason: ANXIETY Hydromorphone HCl (Dilaudid Inj1s*) 0.5 mg IV Q2H PRN PRN Reason: PAIN Last Admin: 05/17/18 14:18 Dose: 0.5 mg Metronidazole/Sodium Chloride (Flagyl 500 Mg Ivpb*) 500 mg in 100 mls @ 100 mls /hr IVPB Q8H [facility] Last Admin: 05/17/18 07:43 Dose: 100 mls/hr Sodium Chloride (Ns 0.9% 1000 Ml*) 1,000 mls @ 100 mls/hr IV PER RATE [facility] Last Admin: 05/17/18 13:24 Dose: 100 mls/hr Ciprofloxacin 400 mg/ Dextrose 200 mls @ 200 mls/hr IVPB Q12H [facility] Last Admin: 05/17/18 13:16 Dose: 200 mls/hr Omeprazole (Prilosec Cap*) 20 mg PO DAILY@0600 [facility] Last Admin: 05/17/18 06:59 Dose: 20 mg Ondansetron HCl (Zofran Odt Tab*) 4 mg PO Q6H PRN PRN Reason: n/v Tramadol HCl (Ultram*) 50 mg PO Q6H PRN PRN Reason: PAIN Trazodone HCl (Desyrel Tab*) 50 mg PO BEDTIME PRN PRN Reason: SLEEP Last Admin: 05/17/18 01:16 Dose: 50 mg Vital Signs - 8 hr 05/17/18 05/17/18 05/17/18 07:32 07:57 08:08 Temperature 98.6 F Pulse Rate 85 Respiratory 16 16 14 Rate Blood Pressure 142/88 (mmHg) O2 Sat by Pulse 99 Oximetry 05/17/18 05/17/18 05/17/18 09:05 11:07 14:18 Temperature Pulse Rate Respiratory 16 16 16 Rate Blood Pressure (mmHg) O2 Sat by Pulse Oximetry Oxygen Devices in Use Now: None Appearance: alert, well appearing Eyes: No Scleral Icterus Ears/Nose/Mouth/Throat: NL Teeth, Lips, Gums Neck: NL Appearance and Movements; NL JVP Respiratory: Symmetrical Chest Expansion and Respiratory Effort, Clear to Auscultation Cardiovascular: NL Sounds; No Murmurs; No JVD, RRR Abdominal: NL Sounds; No Tenderness; No Distention, - - tender to deep palpation , L>R, bowel sounds hyperactive, no rebound or rigidity Extremities: No Edema Skin: No Rash or Ulcers Neurological: Alert and Oriented x 3 Result Diagrams: 05/17/18 07:29 05/17/18 07:29 Additional Lab and Data: Lab Results 05/16/18 05/16/18 Range/Units 18:50 18:50 WBC 8.3 (3.5-10.8) 10^3/ul RBC 4.22 (4.00-5.40) 10^6/ul Hgb 13.5 (12.0-16.0) g/dl Hct 40 (35-47) % MCV 94 (80-97) fL MCH 32 H (27-31) pg MCHC 34 (31-36) g/dl RDW 13 (10.5-15) % Plt Count 265 (150-450) 10^3/ul MPV 7.0 L (7.4-10.4) um3 Neut % (Auto) 86.9 H (38-83) % Lymph % (Auto) 7.8 L (25-47) % Morton % (Auto) 4.5 (0-7) % Eos % (Auto) 0.4 (0-6) % Baso % (Auto) 0.4 (0-2) % Absolute Neuts (auto) 7.2 (1.5-7.7) 10^3/ul Absolute Lymphs (auto) 0.6 L (1.0-4.8) 10^3/ul Absolute Monos (auto) 0.4 (0-0.8) 10^3/ul Absolute Eos (auto) 0 (0-0.6) 10^3/ul Absolute Basos (auto) 0 (0-0.2) 10^3/ul Absolute Nucleated RBC 0 10^3/ul Nucleated RBC % 0.1 Sodium 136 (135-145) mmol/L Potassium 3.6 (3.5-5.0) mmol/L Chloride 100 L (101-111) mmol/L Carbon Dioxide 25 (22-32) mmol/L Anion Gap 11 (2-11) mmol/L BUN 11 (6-24) mg/dL Creatinine 0.76 (0.51-0.95) mg/dL Est GFR ( Amer) 92.1 (>60) Est GFR (Non-Af Amer) 76.1 (>60) BUN/Creatinine Ratio 14.5 (8-20) Glucose 113 H (70-100) mg/dL Calcium 9.7 (8.6-10.3) mg/dL Total Bilirubin 0.50 (0.2-1.0) mg/dL AST 19 (13-39) U/L ALT 14 (7-52) U/L Alkaline Phosphatase 57 (34-104) U/L Total Protein 6.9 (6.4-8.9) g/dL Albumin 4.4 (3.2-5.2) g/dL Globulin 2.5 (2-4) g/dL Albumin/Globulin Ratio 1.8 (1-3) Lipase 22 (11.0-82.0) U/L Assess/Plan/Problems-Billing Assessment: 68 year old female admitted with 4 days of diarrhea and abdominal pain and found to have colitis on CT - Patient Problems (1) Colitis Current Visit: Yes Status: Acute Code(s): K52.9 - NONINFECTIVE GASTROENTERITIS AND COLITIS, UNSPECIFIED SNOMED Code(s): 90053919 Comment: infectious most likely, less likely inflammatory, less likely ischemic no travel or undercooked or unusual food, no sick contacts no family or personal history of IBD no risk factors for ischemia or thrombosis check stool culture, lactoferrin, and c. diff continue pain control and ivf cipro/flagyl started empirically; culture may be unrevealing but explained the prevalence of c. diff in the community advance diet for dinner (2) Depression Current Visit: Yes Status: Acute Code(s): F32.9 - MAJOR DEPRESSIVE DISORDER , SINGLE EPISODE, UNSPECIFIED SNOMED Code(s): 60296555 Comment: continue home citalopram, bupropion, and trazodone
[2018-05-17] MEDS ORDERED: Potassium Chloride LIQUID* 20 MEQ PACKET PO ONE ×2 (14:42→16:29)
[2018-05-17] MEDS: clonazePAM TAB(*) 0.5 MG PO PRN (21:19)
[2018-05-17] MEDS ORDERED: Ciprofloxacin IV(*) 400 MG in D5W 250 ML BAG* 160 ML IVPB SCH (23:00)
[2018-05-18] MEDS: metroNIDAZOLE IV 500 MG/100ML* 500 MG/100 ML BAG IVPB SCH ×2 (00:23→08:37)
[2018-05-18] MEDS: Ciprofloxacin IV(*) 400 MG in D5W 250 ML BAG* 160 ML IVPB SCH (01:29)
[2018-05-18] MEDS: NS 0.9% 1000 ML* 1,000 ML IV SCH (05:18)
[2018-05-18] MEDS: Omeprazole CAP* 20 MG PO SCH (05:57)
[2018-05-18] MEDS: clonazePAM TAB(*) 0.5 MG PO PRN (07:30)
[2018-05-18] MEDS: buPROPion TAB* 75 MG PO SCH (09:45)
[2018-05-18] MEDS: Citalopram TAB* 20 MG PO SCH (09:45)
[2018-05-18] MEDS ORDERED: traMADol TAB* 50 MG PO PRN (10:38)
[2018-05-18 11:22] VITALS: BP 168/92
--- NOTE | 2018-05-19 04:11 | DS ---
CC: Alexis Noriega MD * DISCHARGE SUMMARY: DATE OF ADMISSION: 05/16/18 DATE OF DISCHARGE: 05/18/18 PRIMARY CARE PHYSICIAN: Alexis Noriega MD PRINCIPAL DIAGNOSIS: Infectious colitis. SECONDARY DIAGNOSIS: Anxiety. MEDICATIONS: New Medications: 1. Tramadol 50 mg q4-6 prn pain, total 24 tabs Remaining medications are unchanged as follows: 1. Lexapro 10 mg p.o. daily. 2. Klonopin 0.5 mg p.o. b.i.d. as needed. 3. Trazodone 50 mg at bedtime as needed. 4. Wellbutrin 150 mg p.o. b.i.d. HOSPITAL COURSE: This is a 68-year-old female with an unremarkable past medical history who presented to the emergency room with abdominal pain, nausea , and diarrhea. The patient had blood work done that did not show a white count. She also had a CAT scan done of the abdomen and pelvis that showed infectious colitis, cecum through hepatic flexure. She was admitted, placed on IV fluids, started on ciprofloxacin and Flagyl IV and clear quid diet. Throughout her hospitalization, her abdominal pain improved. She is still having some discomfort that has improved with tramadol. We advanced her diet to a regular diet this morning, she has been tolerating crackers, yogurt, and had an orange. Her is at the bedside. Currently, we discussed testing her for Giardia as she states she has had that in the past. Her C. diff is negative. Her stool cultures pending. Her Giardia testing will be done tomorrow on 05/19/18 and her blood cultures were negative. Her vitals throughout the hospitalization remained unremarkable. She remained afebrile with normal blood pressure and pulse. Her blood pressures were elevated initially, but have now been high normal. We discussed discontinuing antibiotics as most infectious colitis antibiotics are not indicated and she was agreeable to this stating that she has a hard time tolerating antibiotics and thinks that this may be exacerbating her abdominal pain. The patient denies any family member with similar symptoms. No recent travel or antibiotic use with unclear etiology behind her infectious colitis. Clinically, she has improved. She has not had any diarrhea during the day. The patient is being discharged to home under the care of her . ACTIVITY: As tolerated. DIET: Advance as tolerated. DISCHARGE INSTRUCTIONS: We will follow up with her Giardia and prescribe accordingly. The patient is aware if her abdominal pain worsens or she has any signs of dehydration with diarrhea that she should return to the emergency room. Of note, she has not had any diarrhea this morning since her diet was advanced. PATIENT TIME: Greater than 30 minutes was spent doing the discharge summary with greater than half the time was in direct patient contact. [id number]/[facility] #: [id number] MTDD
== END 2018-05-18 14:30 | disposition home or self-care (01) ==
LOC: ED 16:50 → MED 23:30
PROVIDERS: ADMIT Hospitalist; ATTEND Pediatrics
DX: A09 Infectious gastroenteritis and colitis, unspecified (principal); F41.9 Anxiety disorder, unspecified; Z79.899 Other long term (current) drug therapy; Z88.0 Allergy status to penicillin; Z88.1 Allergy status to other antibiotic agents; Z87.891 Personal history of nicotine dependence; R10.30 Lower abdominal pain, unspecified; R11.0 Nausea; R19.7 Diarrhea, unspecified
CPT/HCPCS: 36415; 74177; 80048; 80053; 81003; 81015; 83605; 83630; 83690; 85025; 87040; 87045; 87046; 87329; 87493; 87899; 96365; 96366; 96367; 96375; 96376; 99285; 99406; A9270-GY; G0378; J0744; J1170; J1956; J2060; J2270; J2405; J3010; J3490; Q9967